=== PATIENT | female | born 1940 | race Caucasian/White ===

== ENCOUNTER → 2017-05-24 11:03 | Outpatient (POV) | payer MEDICARE, SELFPAY ==
[2017-05-24 11:37] VITALS: BP 177/96; PULSE 106; RESP 18; TEMP 36.3; O2SAT 95; BMI 87.9
--- NOTE | 2017-05-24 11:49 | HMH.PAINSOAP ---
[facility] Pain Management SOAP Note Subjective:: This patient is a pleasant 76-year-old white female who we are treating for low back pain with lumbar spondylosis and lumbar radiculopathy symptoms. She had bilateral facet joint injection/medial branch blocks which gave her some relief however not long lasting and not significant. We will seek approval and plan on a regular lumbar epidural steroid injection. She may get better relief from this injection. She had previous surgery by Dr. Rivers in 1989. Most of her pain is in the back radiating down both legs. Objective:: Alert and oriented ?3 in no acute distress. Patient has an antalgic gait. Motor strength of the lower extremities is 5/5. There is no gross sensory deficit. Assessment:: Degenerative disc disease of the lumbar spine with lumbar radiculopathy symptoms and postlaminectomy syndrome lumbar spine Plan:: We will seek approval for a lumbar epidural steroid injection at L4-L5. Hopefully this will give her better pain relief than previous lumbar medial branch blocks
== END ==
PROVIDERS: Family Provider Internal Medicine Adolescent Medicine; PCP Internal Medicine Adolescent Medicine; Visit Provider Anesthesiology
DX: M51.16 Intervertebral disc disorders with radiculopathy, lumbar region (principal)
CPT/HCPCS: 99212

== ENCOUNTER 2017-06-06 17:37 | Emergency (ER) | payer MEDICARE, SELFPAY ==
--- NOTE | 2017-06-06 | CT_ITS ---
CT head/brain wo con HISTORY: aphasia, speech difficulty ITS.REASON: STROKE PROTOCOL ORDERING PHYSICIAN: Urbano Steve MD PATIENT AGE: 77 years COMPARISON: 02/01/2017 TECHNIQUE: Axial images obtained without contrast. Brain and bone windows reviewed. FINDINGS: No midline shift, mass effect, intracranial hemorrhage, hydrocephalus, or extra-axial fluid collection is evident. There is atrophy with chronic periventricular ischemic gliotic change. The calvarium has an unremarkable appearance. No mastoid effusion. No sinus air-fluid levels.. IMPRESSION: 1. No acute intracranial findings. 2. Atrophy with chronic ischemic gliotic change. 3. There is no evidence of intracranial hemorrhage, focal mass, or acute territorial infarction. A negative CT does not exclude an acute CVA. A follow-up head CT or MRI is recommended if neurological symptoms persist .
[2017-06-06 17:37] VITALS: BP 198/128; PULSE 98; RESP 16; TEMP 36.9; O2SAT 98; BMI 40.2
--- NOTE | 2017-06-06 17:45 | PC.NURSE ---
Notified Rad of Stroke Protocol.
[2017-06-06 17:46] VITALS: BMI 40.2
--- NOTE | 2017-06-06 17:46 | XR_ITS ---
XR chest AP HISTORY: aphasia, confusion ITS.REASON: confusion ORDERING PHYSICIAN: Urbano Steve MD PATIENT AGE: 77 years COMPARISON: 03/29/2016 FINDINGS: Cardiomegaly without failure. There is mild blunting of the left CP angle.. The lungs are clear without infiltrates, suspicious nodules, or pleural effusions. No acute bony abnormalities. IMPRESSION: Cardiomegaly with blunting of left CP angle suggesting small effusion
--- NOTE | 2017-06-06 17:46 | CT_ITS ---
CT Request head Ordering Physician: Urbano Steve MD Patient Age: 77 years: Female HISTORY: ITS.REASON: period of expressive aphasia TECHNIQUE: Axial CT head without contrast with brain and bone windows performed and submitted to PACS. COMPARISON :Previous CT head with & without contrast January 2017 FINDINGS No acute intracranial findings. No hemorrhage. No mass effect or mass lesion evident.. No subdural no extra-axial collection. No territorial infarct Mild cerebral atrophy again noted. Stable. Chronic small vessel deep white matter ischemic chronic changes, as reflected by the diffuse subtle low-density areas throughout the white matter cerebral hemispheres bilateral.. atherosclerotic calcification seen at the carotid siphon Posterior fossa appears satisfactory . IACs appear symmetric. Unremarkable. Middle ear clear. Mastoid air cells are well-developed and clear. The visualized portions of the paranasal sinuses clear no significant findings. Orbits unremarkable IMPRESSION: 1. No acute intracranial findings. Stable CT the brain without contrast. No appreciable change since February 16 2. Mild chronic small vessel deep white matter ischemic changes at hemispheres again noted
--- NOTE | 2017-06-06 17:47 | PC.NURSE ---
Pt leaving for CT
--- NOTE | 2017-06-06 18:05 | PC.NURSE ---
Pt return from CT
[2017-06-06 18:07] VITALS: BP 195/128; PULSE 85; RESP 16; O2SAT 98
--- NOTE | 2017-06-06 18:09 | HMH.EDNEU ---
ED Disposition Clinical Impression: Hypertensive emergency Cerebrovascular accident Qualifiers: CVA mechanism: unspecified Qualified Code(s): I63.9 - Cerebral infarction, unspecified A-fib Qualifiers: Atrial fibrillation type: chronic Qualified Code(s): I48.2 - Chronic atrial fibrillation Disposition: Xfer Short-Term Hosp Condition on Discharge: Serious Referrals: Adriano Aguilar MD [Primary Care Provider] - - Critical Care Critical Care Time: Yes Attestation: On 06/06/17, the high probability of a clinically significant, sudden or life threatening deterioration of the following system(s) required my full and direct attention, intervention and personal management. The time I documented below is in addition to time spent performing reported procedures but includes the following listed in this critical care notation. Total Critical Care Time: 60 Vital system(s) involved:: Central Nervous System My critical care processes included: Assessment & monitoring of V/S, Initial and Re-exams, Medication Orders and management, Documentation Medical Decision Making - Medical Records Medical records reviewed: Yes: I reviewed the patient's medical records. Vital Signs: 06/06/17 17:37 06/06/17 18:07 06/06/17 19:00 Temperature 98.5 F Temperature Source Oral Pulse Rate [Right Brachial] 98 H 85 87 Respiratory Rate 16 16 16 Blood Pressure [Left Arm] 198/128 195/128 185/115 Blood Pressure Mean [Left Arm] 151 150 138 Blood Pressure Source [Left Arm] Manual Cuff/ Auscultation Manual Cuff/ Palpation Manual Cuff/ Palpation Blood Pressure Position [Left Arm] Sitting Sitting Sitting 02 Sat by Pulse Oximetry 98 98 98 Oxygen Delivery Method Room Air Room Air Room Air - Lab Data Lab results reviewed: Yes: I reviewed the patient's lab results. Lab Results 06/06/17 18:27: WBC 6.3, RBC 4.66, Hgb 14.0, Hct 43.2, MCV 92.6, MCH 30.0, MCHC 32.4, RDW 12.8, Plt Count 190, MPV 9.4, Neut % (Auto) 64.2, Lymph % (Auto) 24.0, [place] % (Auto) 9.3, Eos % (Auto) 1.9, Baso % (Auto) 0.5, Neut # (Auto) 4.0, Lymph # (Auto) 1.5, [place] # (Auto) 0.6, Eos # (Auto) 0.1, Baso # (Auto) 0.0 06/06/17 18:27: Total Creatine Kinase 55, CK-MB (CK-2) 1.1, CK-MB (CK-2) Rel Index 2.0, Troponin I < 0.02 06/06/17 18:27: PT 10.7, INR 0.99, APTT 25.1 06/06/17 18:27: Sodium 139, Potassium 4.2, Chloride 103, Carbon Dioxide 27, Anion Gap 13.2, BUN 17, Creatinine 1.06 H, Estimated Creat Clear 68, Estimated GFR 50 L, Est GFR ( Amer) 61, Glucose 138 H Result diagrams: 06/06/17 18:27 06/06/17 18:27 Orders (Tests/Meds): ED MEDICATIONS Discontinued Medications Generic Name Dose Route Start Last Admin Trade Name Freq PRN Reason Stop Dose Admin Labetalol HCl 10 mg 06/06/17 19:26 Labetalol Hcl 20mg/4ml Syringe IV 06/06/17 19:27 ONCE ONE ORDERS Category Date Time Status CT head/brain wo con Routine Cat Scan 06/06/17 Taken Chest XR AP view [XR chest AP] Stat Exams 06/06/17 17:46 Taken - Radiology Data #1 Image(s): Chest Image Reviewed: Yes I reviewed the patient's radiology image Preliminary Findings: Abnormal (cm) - CT Data CT Scan: Head Time Received: 18:[address] Reviewed: Yes: I have viewed the radiologist's interpretation Preliminary Findings: Abnormal (no acute bleed) - ECG Data Tracing #1 I reviewed this ECG and interpreted as documented below: Arrhythmias present: afib Ischemic changes: non-specific ST-T wave changes - Physician Consults Physician Consulted: sarah Reason -: Transfer to another facilty - [facility] Inquiry Pt receiving controlled substance: No Neuro HPI - General Chief Complaint: Neuro Symptoms/Deficit Stated Complaint: Difficulty Speaking Time Seen by Provider: 06/06/17 18:00 Mode of Arrival: Wheelchair Source of Information: Patient, Relative, Medical Record Limitations: No Limitations Description of Symptoms (Recalled from ER Triage Doc. by RN): Pt family advises she had a
--- NOTE | 2017-06-06 18:12 | ED_ITS ---
ED Disposition Clinical Impression: Hypertensive emergency Cerebrovascular accident Qualifiers: CVA mechanism: unspecified Qualified Code(s): I63.9 - Cerebral infarction, unspecified A-fib Qualifiers: Atrial fibrillation type: chronic Qualified Code(s): I48.2 - Chronic atrial fibrillation Disposition: Xfer Short-Term Hosp Condition on Discharge: Serious Referrals: Adriano Aguilar MD [Primary Care Provider] - - Critical Care Critical Care Time: Yes Attestation: On 06/06/17, the high probability of a clinically significant, sudden or life threatening deterioration of the following system(s) required my full and direct attention, intervention and personal management. The time I documented below is in addition to time spent performing reported procedures but includes the following listed in this critical care notation. Total Critical Care Time: 60 Vital system(s) involved:: Central Nervous System My critical care processes included: Assessment & monitoring of V/S, Initial and Re-exams, Medication Orders and management, Documentation Medical Decision Making - Medical Records Medical records reviewed: Yes: I reviewed the patient's medical records. Vital Signs: 06/06/17 17:37 06/06/17 18:07 06/06/17 19:00 Temperature 98.5 F Temperature Source Oral Pulse Rate [Right Brachial] 98 H 85 87 Respiratory Rate 16 16 16 Blood Pressure [Left Arm] 198/128 195/128 185/115 Blood Pressure Mean [Left Arm] 151 150 138 Blood Pressure Source [Left Arm] Manual Cuff/ Auscultation Manual Cuff/ Palpation Manual Cuff/ Palpation Blood Pressure Position [Left Arm] Sitting Sitting Sitting 02 Sat by Pulse Oximetry 98 98 98 Oxygen Delivery Method Room Air Room Air Room Air - Lab Data Lab results reviewed: Yes: I reviewed the patient's lab results. Lab Results 06/06/17 18:27: WBC 6.3, RBC 4.66, Hgb 14.0, Hct 43.2, MCV 92.6, MCH 30.0, MCHC 32.4, RDW 12.8, Plt Count 190, MPV 9.4, Neut % (Auto) 64.2, Lymph % (Auto) 24.0 , [place] % (Auto) 9.3, Eos % (Auto) 1.9, Baso % (Auto) 0.5, Neut # (Auto) 4.0, Lymph # (Auto) 1.5, [place] # (Auto) 0.6, Eos # (Auto) 0.1, Baso # (Auto) 0.0 06/06/17 18:27: Total Creatine Kinase 55, CK-MB (CK-2) 1.1, CK-MB (CK-2) Rel Index 2.0, Troponin I < 0.02 06/06/17 18:27: PT 10.7, INR 0.99, APTT 25.1 06/06/17 18:27: Sodium 139, Potassium 4.2, Chloride 103, Carbon Dioxide 27, Anion Gap 13.2, BUN 17, Creatinine 1.06 H, Estimated Creat Clear 68, Estimated GFR 50 L, Est GFR ( Amer) 61, Glucose 138 H Result diagrams: 06/06/17 18:27 06/06/17 18:27 Orders (Tests/Meds): ED MEDICATIONS Discontinued Medications Generic Name Dose Route Start Last Admin Trade Name Freq PRN Reason Stop Dose Admin Labetalol HCl 10 mg 06/06/17 19:26 Labetalol Hcl 20mg/4ml Syringe IV 06/06/17 19:27 ONCE ONE ORDERS Category Date Time Status CT head/brain wo con Routine Cat Scan 06/06/17 Taken Chest XR AP view [XR chest AP] Stat Exams 06/06/17 17:46 Taken - Radiology Data #1 Image(s): Chest Image Reviewed: Yes I reviewed the patient's radiology image Preliminary Findings: Abnormal (cm) - CT Data CT Scan: Head Time Received: 18:[address] Reviewed: Yes: I have viewed the radiologist's interpretation Preliminary Findings: Abnormal (no acute bleed) - ECG Data
--- NOTE | 2017-06-06 18:16 | INFXCTL.NOTE ---
speaking manju MARINO
--- NOTE | 2017-06-06 18:18 | PC.NURSE ---
[facility] reports to CT negative
[2017-06-06 18:40] LABS: Basophils % 0.5 % (0.1-2.0); Eosinophils # 0.1 K/mm3 (0.0-0.4); Eosinophils % 1.9 % (0.1-12.0); Hematocrit 43.2 % (37.0-47.0); Lymphocytes # 1.5 K/mm3 (0.7-4.5); Mean Corpuscular HGB Conc 32.4 g/dL (31.8-35.4); Mean Corpuscular Volume 92.6 fl (81-99); Mean Platelet Volume 9.4 fl (7.4-10.4); Monocytes # 0.6 K/mm3 (0.1-1.0); Monocytes % 9.3 % (1.7-9.3); Neutrophils % 64.2 % (37.0-80.0); Platelet Count 190 K/mm3 (142-424); Red Blood Count 4.66 M/mm3 (4.20-5.40); Red Cell Distribution Width 12.8 % (11.5-17.5); White Blood Count 6.3 K/mm3 (4.8-10.8)
[2017-06-06 18:43] LABS: Anion Gap 13.2 mEq/L (5-15); Blood Urea Nitrogen 17 mg/dL (7-18); Carbon Dioxide 27 mmol/L (21.0-32.0); Chloride 103 mmol/L (98-107); Creatinine Clearance Estimated 68 mL/min (0-300); Creatinine,Serum 1.06 mg/dL (0.55-1.02); Estimated Glomerular Filt Rate 50 ml/min (>60); GFR (African American) 61 ML/MIN (>60); Glucose 138 mg/dL (74-106); Potassium 4.2 mmoL/L (3.5-5.1); Sodium 139 mmol/L (136-145)
[2017-06-06 18:44] LABS: Activated Partial Thrombo Time 25.1 seconds (23.6-34.0); INR 0.99 (0.9-1.1); Prothrombin Time 10.7 seconds (9.4-11.8)
[2017-06-06 19:00] VITALS: BP 185/115; PULSE 87; RESP 16; O2SAT 98
[2017-06-06 19:00] LABS: Creatine Kinase 55 U/L (26-192); Creatine Kinase MB 1.1 mg/ml (0.0-3.6); Troponin I < 0.02 ng/ml (0.00-0.06)
--- NOTE | 2017-06-06 19:21 | PC.NURSE ---
[facility]OKE TEAM CALLED
[2017-06-06 19:53] VITALS: BP 166/111; PULSE 116; RESP 20; O2SAT 96
[2017-06-06 20:35] VITALS: BP 166/111; PULSE 116; RESP 20; TEMP 36.4
== END 2017-06-06 20:05 | disposition short-term general hospital (02) ==
PROVIDERS: Emergency Provider Emergency Medicine; Family Provider Internal Medicine Adolescent Medicine; PCP Internal Medicine Adolescent Medicine
DX: I16.1 Hypertensive emergency (principal); I63.9 Cerebral infarction, unspecified; I48.2 Chronic atrial fibrillation; R29.700 NIHSS score 0; Z88.6 Allergy status to analgesic agent; E11.9 Type 2 diabetes mellitus without complications; Z79.84 Long term (current) use of oral hypoglycemic drugs; Z79.82 Long term (current) use of aspirin
CPT/HCPCS: 36415; 70450; 71045; 80048; 82550; 82553; 84484; 85025; 85610; 85730; 93005; 93041; 99283

== ENCOUNTER 2017-07-23 15:29 | Day surgery (SDC) | payer MEDICARE, SELFPAY ==
[2017-07-23 15:47] VITALS: BP 193/82; PULSE 87; RESP 16; TEMP 36.5; O2SAT 97; BMI 39.9
--- NOTE | 2017-07-23 16:20 | HMH.PMPROC ---
- Procedure Date: 07/23/17 Time: 16:20 Anesthesiologist:: Jewel Galvin MD Complications:: None Pre-procedure Diagnosis:: Degenerative disc disease of lumbar spine with lumbar radiculopathy symptoms and postlaminectomy syndrome with lumbar spine. Post-procedure Diagnosis:: Same Indications for Procedure:: Patient is a pleasant 76-year-old white female who we are treating for low back pain with lumbar radiculopathy symptoms. She is also had previous back surgery. We do a lumbar epidural steroid injection under fluoroscopy today to see if this gives her some relief. Procedure Details:: Lumbar epidural steroid injection under fluoroscopy informed consent was obtained and the risk and benefits of the procedure was explained to the patient. The patient was taken to the procedure room. The patient was placed prone on the procedure table. The patient was prepped and draped in sterile fashion. C-arm fluoroscopy was used to view the lumbar spine. Skin and subcutaneous tissues were anesthetized using lidocaine. I placed an 18-gauge epidural needle and advanced into the L4-L5 interspace using fluoroscopic guidance and [id number] to air. After confirmation of needle placement in the epidural space with dye I injected 2 mL of lidocaine 1.5% with Depo-Medrol 80 mg. Patient tolerated the procedure well with no complications. Plan and Disposition:: We will follow-up with this patient in 2 weeks. Will reevaluate symptoms at that time.
[2017-07-23 16:23] VITALS: BP 185/103; PULSE 85; RESP 20
[2017-07-23 16:25] VITALS: BP 188/99; PULSE 86; RESP 20
--- NOTE | 2017-07-23 16:29 | P.PCN_ITS ---
- Procedure Date: 07/23/17 Time: 16:20 Anesthesiologist:: Jewel Galvin MD Complications:: None Pre-procedure Diagnosis:: Degenerative disc disease of lumbar spine with lumbar radiculopathy symptoms and postlaminectomy syndrome with lumbar spine. Post-procedure Diagnosis:: Same Indications for Procedure:: Patient is a pleasant 76-year-old white female who we are treating for low back pain with lumbar radiculopathy symptoms. She is also had previous back surgery. We do a lumbar epidural steroid injection under fluoroscopy today to see if this gives her some relief. Procedure Details:: Lumbar epidural steroid injection under fluoroscopy informed consent was obtained and the risk and benefits of the procedure was explained to the patient. The patient was taken to the procedure room. The patient was placed prone on the procedure table. The patient was prepped and draped in sterile fashion. C-arm fluoroscopy was used to view the lumbar spine. Skin and subcutaneous tissues were anesthetized using lidocaine. I placed an 18-gauge epidural needle and advanced into the L4-L5 interspace using fluoroscopic guidance and [id number] to air. After confirmation of needle placement in the epidural space with dye I injected 2 mL of lidocaine 1.5 % with Depo-Medrol 80 mg. Patient tolerated the procedure well with no complications. Plan and Disposition:: We will follow-up with this patient in 2 weeks. Will reevaluate symptoms at that time.
[2017-07-23 16:40] VITALS: BP 175/83; PULSE 88; RESP 18; O2SAT 97
[2017-07-27 10:03] LABS: POC Glucose,Bedside 102 mg/dL (70-110)
== END 2017-07-23 16:30 | disposition home or self-care (01) ==
LOC: SC.PAINP 15:31
PROVIDERS: Family Provider Internal Medicine Adolescent Medicine; PCP Internal Medicine Adolescent Medicine; Visit Provider Anesthesiology
DX: M51.16 Intervertebral disc disorders with radiculopathy, lumbar region (principal); M96.1 Postlaminectomy syndrome, not elsewhere classified
CPT/HCPCS: 62323; 82962; J1040; Q9966

== ENCOUNTER 2018-07-26 12:50 | Observation (INO) ==
--- NOTE | 2018-07-26 14:23 | Pharmacy Consult Notes ---
[facility] Pharmacy VTE Monitoring - Patient Demographics Admission date: 07/26/18 Report Date: 07/26/18 Time: 14:23 Allergies/Adverse Reactions: Patient Allergies codeine [CODEINE] Allergy (Unknown, Verified 06/06/17 18:01) Height: 1.63 m Weight: 91.314 kg - Prophylaxis VTE Prophylaxis Ordered?: Yes Types of VTE Prophylaxis: TEDS Knee High, Pharmacological Location of Applied Device: Bilateral Lower Extremeties Pharmacologic Type: Other (XARELTO) - VTE Diagnosis Confirmed Treatment or plan recommended: Continue Current Treatment
[2018-07-26 15:04] LABS: Basophils % 0.3 % (0.1-2.0); Eosinophils # 0.1 K/mm3 (0.0-0.4); Eosinophils % 0.6 % (0.1-12.0); Hematocrit 41.1 % (37.0-47.0); Hemoglobin 13.7 g/dL (12.2-16.2); Lymphocytes % 10.3 % (10-50); Mean Corpuscular HGB Conc 33.4 g/dL (31.8-35.4); Mean Corpuscular Hemoglobin 31.1 pg (27.0-31.2); Mean Platelet Volume 10.3 fl (7.4-10.4); Monocytes # 0.7 K/mm3 (0.1-1.0); Monocytes % 7.3 % (1.7-9.3); Neutrophils # 7.7 K/mm3 (1.8-7.8); Neutrophils % 81.5 % (37.0-80.0); Platelet Count 222 K/mm3 (142-424); Red Blood Count 4.41 M/mm3 (4.20-5.40); Red Cell Distribution Width 13.6 % (11.5-17.5); White Blood Count 9.4 K/mm3 (4.8-10.8)
[2018-07-26 15:48] LABS: Albumin Level 3.1 gm/dL (3.4-5.0); Anion Gap 15.7 mEq/L (5-15); Bilirubin,Total 0.5 mg/dL (0.2-1.0); Globulin 3.2 gm/dl (1.3-3.2); Potassium 4.7 mmoL/L (3.5-5.1); Total Protein,Serum 6.3 gm/dL (6.4-8.2)
[2018-07-26 16:23] LABS: Microscopic, Urine URINE MICROSCOPIC (MICROSCOPIC)
[2018-07-26 16:26] LABS: Appearance,Urine CLEAR (Clear); Blood, Urine TRACE-I (Negative); Color,Urine YELLOW (Yellow); Glucose,Urine (UA) Negative (Negative); Ketones,Urine 1+ (Negative); Leukocyte Esterase,Urine 2+ (Negative); PH,Urine 5.5 (5.0-8.5); Protein,Urine 1+ (Negative); Urobilinogen,Urine 0.2 EU/dl (0.2)
[2018-07-26 16:31] LABS: Bilirubin,Urine Negative (Negative)
[2018-07-26 16:50] LABS: Bacteria,Urine Trace /lpf; RBC,Urine Occasional #/hpf (0-3)
--- NOTE | 2018-07-26 18:43 | History & Physical Report ---
*Admission Date: 07/26/18 *Chief complaint: Severe nausea/weight loss *History of present illness: 78-year-old white female with multiple medical problems including hypertension, type 2 diabetes and diastolic CHF who presented to my office today with continuing problems with nausea and weight loss. She had been diagnosed with urinary tract infection, treated as an outpatient last weekend, but had failed to improve and apparently has not been taking her oral medications for urinary tract infection because of nausea and severe vomiting. In the office she was found to be dehydrated, have a 10 pound weight loss over the past week and was admitted to hospital for further evaluation and further diagnostic testing. [facility] History I have reviewed the patient's past medical history: Yes Medical History: Reports:: Atrial Fibrillation, Diabetes Mellitus Type 2, Hyperlipidemia, Hypertension Denies:: Diabetes Mellitus Type 1 *Have you ever received a pneumonia vaccine?: No *Have you received a flu vaccine this season?: No Other Medical History: Reports: Cataracts, Hypothyroidism, Thyroid Disease Other Surgeries: Yes: Cardiac Catheterization (stents) - *Social History Smoking Status: Former smoker Alcohol Intake: never *Occupational Status:: unemployed, retired Housing: house *Travel in the last 8 weeks: None - Psychiatric History Expresses thoughts of harming self/others: None Suicide Plan Description: No Plan Family Hx:: No significant family history, Non-contributory Review of Systems - Review of Systems Review of systems:: pertinent systems reviewed and negative unless documented below - Constitutional Reports anorexia, Reports body ache(s), Reports fatigue, Reports malaise, Denies headache(s) - Eyes Denies blind spots, Denies blurry vision, Denies change in vision - ENT Denies abnormal hearing, Denies bleeding gums - *Cardiovascular Reports irregular heart rhythm, Denies chest pain, Denies excessive sweating, Denies shortness of breath, Denies leg swelling, Denies leg sores - *Respiratory Denies change in phlegm color, Denies chest congestion, Denies cough, Denies shortness of breath - *Gastrointestinal Reports abdominal pain, Reports belching, Reports bloating, Reports difficulty swallowing, Reports feeling full early, Reports heartburn, Reports nausea, Denies vomiting blood, Denies bright, red blood in stools - *Genitourinary Denies abnormal vaginal bleeding - *Musculoskeletal Reports abnormal walking - Integumentary/Breasts Denies acne, Denies hair loss - *Neurologic Denies abnormal walking, Denies abnormal hearing, Denies abnormal movements, Denies burning sensations Meds Home Medications Medication Instructions Recorded Confirmed Type Aspirin [Aspirin 81mg chewable 81 mg PO DAILY 05/24/17 07/26/18 History tab] Levothyroxine Sodium 50 mcg PO DAILY 05/24/17 07/26/18 History [Levothyroxine 50mcg (0.05mg) Tab] Metformin HCl [Glucophage 500mg 1,000 mg PO BID 05/24/17 07/26/18 History Tablet] Omeprazole Magnesium [Prilosec Otc 20 mg PO BID 05/24/17 07/26/18 History 20mg Tab] Rivaroxaban [Xarelto] 20 mg PO DAILY 07/23/17 07/26/18 History Nitrofurantoin Monohyd/M-Cryst 100 mg PO BID #14 capsule 07/19/18 07/26/18 Rx [Macrobid 100 mg Capsule] Ondansetron [Zofran 4mg ODT] 4 mg PO TIDP PRN #10 tab.rapdis 07/19/18 07/26/18 Rx Atorvastatin Calcium [Atorvastatin 40 mg PO HS 07/26/18 07/26/18 History 40mg Tab] Carvedilol [Carvedilol 25mg Tab] 25 mg PO BID 07/26/18 07/26/18 History Lisinopril [Lisinopril 40mg Tablet] 40 mg PO DAILY 07/26/18 07/26/18 History hydroCHLOROthiazide [HCTZ 25mg 25 mg PO DAILY 07/26/18 07/26/18 History tab] Allergies Allergy/AdvReac Type Severity Reaction Status Date / Time codeine [CODEINE] Allergy Unknown Verified 06/06/17 18:01 Exam Vital signs and Labs for Last 24 Hours: Temp Pulse Resp BP Pulse Ox 97.8 F 74 18 145/85 H 98 07/26/18 13:56 07/26/18 13:56 07/26/18 13:56 07/26/18 13:56 07/26/18 13:56 Laboratory Results - last 24 hr 07/26/18 14:15: WBC 9.4, RBC 4.41, Hgb 13.7, Hct 41.1, MCV 93.0, MCH 31.1, MCHC 33.4, RDW 13.6, Plt Count 222, MPV 10.3, Neut % (Auto) 81.5 H, Lymph % (Auto) 10.3, [place] % (Auto) 7.3, Eos % (Auto) 0.6, Baso % (Auto) 0.3, Neut # (Auto) 7.7, Lymph # (Auto) 1.0, [place] # (Auto) 0.7, Eos # (Auto) 0.1, Baso # (Auto) 0.0 07/26/18 14:15: Sodium 137, Potassium 4.7, Chloride 102, Carbon Dioxide 24, Anion Gap 15.7 H, BUN 36 H, Creatinine 1.34 H, Estimated Creat Clear 48, Estimated GFR 38 L, Est GFR ( Amer) 46 L, Glucose 128 H, Calcium 8.0 L, Magnesium 1.2 L, Total Bilirubin 0.5, AST 19, ALT 24, Alkaline Phosphatase 49, Total Protein 6.3 L, Albumin 3.1 L, Globulin 3.2, Albumin/Globulin Ratio 1.0 L 07/26/18 16:15: Urine Color Yellow, Urine Appearance Clear, Urine pH 5.5, Ur Specific [place] 1.020, Urine Protein 1+, Urine Glucose (UA) Negative, Urine Ketones 1+, Urine Blood Trace-i, Urine Nitrate Negative, Urine Bilirubin Negative, Urine Urobilinogen 0.2, Ur Leukocyte Esterase 2+ A, Urine RBC Occasional, Urine WBC 5-10, Ur Squamous Epith Cells 3-5, Urine Bacteria Trace 07/26/18 17:06: POC Glucose 112 H I & O for Last 24 hours: Intake & Output 07/24/18 07/25/18 07/26/18 07/27/18 11:59 11:59 11:59 11:59 Intake Total 0 / 0 Output Total 250 / 250 Balance -250 / -250 Weight 201 lb 5 oz Narrative: Patient appears ill, weight loss obvious over the past week. Oropharynx dry but clear. Flat neck veins. Otherwise ENT exam clear. Lungs have good air movement. Abdomen is soft, recent weight loss noted but patient remains obese. Present but diminished bowel sounds. No masses or tenderness with rebound. Heart rate irregular. Previously noted holosystolic murmur. No edema or clubbing. Patient is unsteady and weak when walking. Is able to move arms and legs symmetrically. Assessment and Plan (1) Weight loss Current visit: Yes Status: Acute Category: Medical Code(s): R63.4 - Abnormal weight loss Possibly from metabolic illness but more ominous signs possible. Admit to hospital. CT scan of abdomen, labs, check cultures. (2) Abdominal pain Current visit: Yes Status: Acute Category: Medical Code(s): R10.9 - Unspecified abdominal pain (3) UTI (urinary tract infection) Current visit: No Status: Acute Category: Medical Code(s): N39.0 - Urinary tract infection, site not specified Partially treated given poor compliance with p.o. medication. Start IV ceftriaxone. Check cultures (4) Vomiting Current visit: No Status: Acute Category: Medical Code(s): R11.10 - Vomiting, unspecified
[2018-07-27 06:58] LABS: Platelet Count 174 K/mm3 (142-424)
[2018-07-27 07:03] LABS: Anion Gap 11.4 mEq/L (5-15); Calcium 8.3 mg/dL (8.5-10.1); Potassium 5.4 mmoL/L (3.5-5.1)
[2018-07-27 07:13] LABS: Basophils % 0.4 % (0.1-2.0); Eosinophils % 0.4 % (0.1-12.0); Hematocrit 35.7 % (37.0-47.0); Lymphocytes % 11.9 % (10-50); Mean Corpuscular Hemoglobin 30.9 pg (27.0-31.2); Mean Corpuscular Volume 93.7 fl (81-99); Mean Platelet Volume 9.7 fl (7.4-10.4); Monocytes # 0.8 K/mm3 (0.1-1.0); Monocytes % 9.7 % (1.7-9.3); Neutrophils # 6.1 K/mm3 (1.8-7.8); Neutrophils % 77.5 % (37.0-80.0); Red Blood Count 3.81 M/mm3 (4.20-5.40); Red Cell Distribution Width 13.9 % (11.5-17.5); White Blood Count 7.9 K/mm3 (4.8-10.8)
[2018-07-27 07:19] LABS: Hemoglobin 11.8 g/dL (12.2-16.2)
--- NOTE | 2018-07-27 08:17 | Progress Note ---
Internal Medicine - PN: Subj *Date: 07/27/18 *Time: 08:15 Interval history: Patient feels somewhat better after a night of IV fluids. Has been able to keep down some sips of water and is hungry today. Exam Vital signs and Labs for Last 24 Hours: Temp Pulse Resp BP Pulse Ox 98.7 F 81 16 120/54 L 96 07/27/18 04:00 07/27/18 04:00 07/27/18 04:00 07/27/18 04:00 07/27/18 04:00 Laboratory Results - last 24 hr 07/26/18 14:15: WBC 9.4, RBC 4.41, Hgb 13.7, Hct 41.1, MCV 93.0, MCH 31.1, MCHC 33.4, RDW 13.6, Plt Count 222, MPV 10.3, Neut % (Auto) 81.5 H, Lymph % (Auto) 10.3, [place] % (Auto) 7.3, Eos % (Auto) 0.6, Baso % (Auto) 0.3, Neut # (Auto) 7.7, Lymph # (Auto) 1.0, [place] # (Auto) 0.7, Eos # (Auto) 0.1, Baso # (Auto) 0.0 07/26/18 14:15: Sodium 137, Potassium 4.7, Chloride 102, Carbon Dioxide 24, Anion Gap 15.7 H, BUN 36 H, Creatinine 1.34 H, Estimated Creat Clear 48, Estimated GFR 38 L, Est GFR ( Amer) 46 L, Glucose 128 H, Calcium 8.0 L, Magnesium 1.2 L, Total Bilirubin 0.5, AST 19, ALT 24, Alkaline Phosphatase 49, Total Protein 6.3 L, Albumin 3.1 L, Globulin 3.2, Albumin/Globulin Ratio 1.0 L 07/26/18 16:15: Urine Color Yellow, Urine Appearance Clear, Urine pH 5.5, Ur Specific Energy 1.020, Urine Protein 1+, Urine Glucose (UA) Negative, Urine Ketones 1+, Urine Blood Trace-i, Urine Nitrate Negative, Urine Bilirubin Negative, Urine Urobilinogen 0.2, Ur Leukocyte Esterase 2+ A, Urine RBC Occasional, Urine WBC 5-10, Ur Squamous Epith Cells 3-5, Urine Bacteria Trace 07/26/18 17:06: POC Glucose 112 H 07/26/18 20:27: POC Glucose 108 07/27/18 05:58: WBC 7.9, RBC 3.81 L, Hgb 11.8 L D, Hct 35.7 L, MCV 93.7, MCH 30.9, MCHC 33.0, RDW 13.9, Plt Count 174, MPV 9.7, Neut % (Auto) 77.5, Lymph % (Auto) 11.9, [place] % (Auto) 9.7 H, Eos % (Auto) 0.4, Baso % (Auto) 0.4, Neut # (Auto) 6.1, Lymph # (Auto) 1.0, [place] # (Auto) 0.8, Eos # (Auto) 0.0, Baso # (Auto) 0.0 07/27/18 05:58: Sodium 137, Potassium 5.4 H, Chloride 105, Carbon Dioxide 26, Anion Gap 11.4, BUN 26 H D, Creatinine 1.15 H, Estimated Creat Clear 57, Estimated GFR 45 L, Est GFR ( Amer) 55 L, Glucose 121 H, Calcium 8.3 L 07/27/18 06:02: POC Glucose 117 H I & O for Last 24 hours: Intake & Output 07/24/18 07/25/18 07/26/18 07/27/18 11:59 11:59 11:59 11:59 Intake Total 2076 / 2076 Output Total 250 / 250 Balance 1827 / 1827 Weight 203 lb 9 oz Narrative: Patient looks brighter. No jaundice or scleral icterus. Lungs have good air movement, heart rate regular with previously noted murmur. Abdomen soft, no tenderness. Patient appears better hydrated. Able to move arms and legs well. Assessment and Plan (1) Weight loss Current visit: Yes Status: Acute Category: Medical Code(s): R63.4 - Abnormal weight loss (2) Abdominal pain Current visit: Yes Status: Acute Category: Medical Code(s): R10.9 - Unspecified abdominal pain (3) UTI (urinary tract infection) Current visit: No Status: Acute Category: Medical Code(s): N39.0 - Urinary tract infection, site not specified Possibly partially treated/inadequately treated by p.o. antibiotics last week because of nausea and poor p.o. intake. IV ceftriaxone currently. (4) Vomiting Current visit: No Status: Acute Category: Medical Code(s): R11.10 - Vomiting, unspecified (5) Cholelithiasis Current visit: Yes Status: Acute Category: Medical Code(s): K80.20 - Calculus of gallbladder without cholecystitis without obstruction Possible cause of nausea, noted on CT scan. Check ultrasound today (6) Pericardial effusion Current visit: Yes Status: Acute Category: Medical Code(s): I31.3 - Pericardial effusion (noninflammatory) Patient has a cardiac history. Will get echocardiogram to evaluate significance of pericardial effusion visualized on CT scan and have her cardiology team follow her up while in hospital (7) Acute kidney injury Current visit: Yes Status: Acute Category: Medical Code(s): N17.9 - Acute kidney failure, unspecified Improving overnight after IV fluids, will watch tomorrow. (8) Hyperkalemia Current visit: Yes Status: Acute Category: Medical Code(s): E87.5 - Hyperkalemia Has a history of hyperkalemia. We will watch this tomorrow. Continue IV fluids
--- NOTE | 2018-07-27 11:46 | Consult Report ---
History of Present Illness Consult date: 07/27/18 Requesting physician: Adriano Aguilar Consult reason: shortness of breath Chief complaint: Vomiting, shortness of breath, pericardial effusion History of present illness: This is an 78-year-old white female who was admitted to the hospital from her primary care provider's office after a 10 pound weight loss in 1 week and dehydration. The patient was being treated outpatient for a UTI, but there was some noncompliance with her treatment and the patient failed to get better with her UTI. The patient was having abdominal pain nausea vomiting and weight loss. As mentioned before she did lose 10 pounds in around about a week. The patient states that she just did not feel well. She does have some shortness of breath at times with exertion. She states that this is only minimal. She states that her nausea and vomiting are more of a bother to her than her shortness of breath. She denies any chest pain or pressure. She denies any palpitations or racing of the heart. She does report that she does have a history of coronary artery disease with stenting several years ago. She states that she does not regularly follow with a shallot cleaner and she does have atrial fibrillation. While in the hospital she did have a CAT scan of her abdomen which showed a pericardial thickness concerning for a pericardial effusion. She denies any fevers, chills, diarrhea, PND orthopnea. [facility] History I have reviewed the patient's past medical history: Yes Medical History: Reports:: Atrial Fibrillation, Coronary Artery Disease, Ramila betes Mellitus Type 2, Hyperlipidemia, Hypertension Denies:: Diabetes Mellitus Type 1 *Have you ever received a pneumonia vaccine?: No *Have you received a flu vaccine this season?: No Other Medical History: Reports: Cataracts, Hypothyroidism, Thyroid Disease Other Surgeries: Yes: Cardiac Catheterization (stents), Coronary Stent - *Social History Smoking Status: Former smoker Alcohol Intake: never *Occupational Status:: unemployed, retired Housing: house *Travel in the last 8 weeks: None - Psychiatric History Expresses thoughts of harming self/others: None Suicide Plan Description: No Plan Family Hx:: No significant family history, Non-contributory Meds Home Medications Medication Instructions Recorded Confirmed Type Aspirin [Aspirin 81mg chewable 81 mg PO DAILY 05/24/17 07/26/18 History tab] Levothyroxine Sodium 50 mcg PO DAILY 05/24/17 07/26/18 History [Levothyroxine 50mcg (0.05mg) Tab] Metformin HCl [Glucophage 500mg 1,000 mg PO BID 05/24/17 07/26/18 History Tablet] Omeprazole Magnesium [Prilosec Otc 20 mg PO BID 05/24/17 07/26/18 History 20mg Tab] Rivaroxaban [Xarelto] 20 mg PO DAILY 07/23/17 07/26/18 History Nitrofurantoin Monohyd/M-Cryst 100 mg PO BID #14 capsule 07/19/18 07/26/18 Rx [Macrobid 100 mg Capsule] Ondansetron [Zofran 4mg ODT] 4 mg PO TIDP PRN #10 tab.rapdis 07/19/18 07/26/18 Rx Atorvastatin Calcium [Atorvastatin 40 mg PO HS 07/26/18 07/26/18 History 40mg Tab] Carvedilol [Carvedilol 25mg Tab] 25 mg PO BID 07/26/18 07/26/18 History Lisinopril [Lisinopril 40mg Tablet] 40 mg PO DAILY 07/26/18 07/26/18 History hydroCHLOROthiazide [HCTZ 25mg 25 mg PO DAILY 07/26/18 07/26/18 History tab] Allergies Allergy/AdvReac Type Severity Reaction Status Date / Time codeine [CODEINE] Allergy Unknown Verified 06/06/17 18:01 Review of Systems - Review of Systems Review of systems:: pertinent systems reviewed and negative unless documented below - Constitutional Reports fatigue, Reports lack of energy - *Respiratory Reports shortness of breath with activity - *Gastrointestinal Reports abdominal pain, Reports nausea, Reports vomiting - *Neurologic Denies abnormal walking, Denies abnormal hearing, Denies abnormal movements, Denies burning sensations, Denies headache(s) Exam Vital signs and Labs for Last 24 Hours: Temp Pulse Resp BP Pulse Ox 98.6 F 83 20 112/52 L 97 07/27/18 08:00 07/27/18 08:00 07/27/18 08:00 07/27/18 08:00 07/27/18 08:00 Laboratory Results - last 24 hr 07/26/18 14:15: WBC 9.4, RBC 4.41, Hgb 13.7, Hct 41.1, MCV 93.0, MCH 31.1, MCHC 33.4, RDW 13.6, Plt Count 222, MPV 10.3, Neut % (Auto) 81.5 H, Lymph % (Auto) 10.3, [place] % (Auto) 7.3, Eos % (Auto) 0.6, Baso % (Auto) 0.3, Neut # (Auto) 7.7, Lymph # (Auto) 1.0, [place] # (Auto) 0.7, Eos # (Auto) 0.1, Baso # (Auto) 0.0 07/26/18 14:15: Sodium 137, Potassium 4.7, Chloride 102, Carbon Dioxide 24, Anion Gap 15.7 H, BUN 36 H, Creatinine 1.34 H, Estimated Creat Clear 48, Estimated GFR 38 L, Est GFR ( Amer) 46 L, Glucose 128 H, Calcium 8.0 L, Magnesium 1.2 L, Total Bilirubin 0.5, AST 19, ALT 24, Alkaline Phosphatase 49, Total Protein 6.3 L, Albumin 3.1 L, Globulin 3.2, Albumin/Globulin Ratio 1.0 L 07/26/18 16:15: Urine Color Yellow, Urine Appearance Clear, Urine pH 5.5, Ur Specific [place] 1.020, Urine Protein 1+, Urine Glucose (UA) Negative, Urine Ketones 1+, Urine Blood Trace-i, Urine Nitrate Negative, Urine Bilirubin Negative, Urine Urobilinogen 0.2, Ur Leukocyte Esterase 2+ A, Urine RBC Occasional, Urine WBC 5-10, Ur Squamous Epith Cells 3-5, Urine Bacteria Trace 07/26/18 17:06: POC Glucose 112 H 07/26/18 20:27: POC Glucose 108 07/27/18 05:58: WBC 7.9, RBC 3.81 L, Hgb 11.8 L D, Hct 35.7 L, MCV 93.7, MCH 30.9, MCHC 33.0, RDW 13.9, Plt Count 174, MPV 9.7, Neut % (Auto) 77.5, Lymph % (Auto) 11.9, [place] % (Auto) 9.7 H, Eos % (Auto) 0.4, Baso % (Auto) 0.4, Neut # (Auto) 6.1, Lymph # (Auto) 1.0, [place] # (Auto) 0.8, Eos # (Auto) 0.0, Baso # (Auto) 0.0 07/27/18 05:58: Sodium 137, Potassium 5.4 H, Chloride 105, Carbon Dioxide 26, Anion Gap 11.4, BUN 26 H D, Creatinine 1.15 H, Estimated Creat Clear 57, Estimated GFR 45 L, Est GFR ( Amer) 55 L, Glucose 121 H, Calcium 8.3 L 07/27/18 06:02: POC Glucose 117 H I & O for Last 24 hours: Intake & Output 07/24/18 07/25/18 07/26/18 07/27/18 23:59 23:59 23:59 23:59 Intake Total 0 / 0 2076 Output Total 250 / 250 Balance -250 / -250 2076 Weight 201 lb 5 oz 203 lb 9 oz Narrative: Her EKG shows atrial fibrillation with a rate of 77 and poor R wave progression. Her preliminary echocardiogram shows a normal ejection fraction. She does have some right ventricular dilatation. There is a loculated posterior 2.3 cm pericardial effusion. - Constitutional no acute distress, obese - *Routine HEENT Exam Head: Present: normocephalic, atraumatic Eye: Present: EOMI, PERRL ENT: Present: mucous membranes moist - *Routine Neck Exam Present: supple, full ROM, normal carotid upstroke. Absent: JVD, carotid bruit, lymphadenopathy - *Routine Respiratory Exam Present: CTA bilaterally - *Routine Cardiovascular Exam Present: Normal S1, Normal S2, irregularly irregular. Absent: murmur, gallop - *Routine Abdominal Exam Present: soft, normoactive bowel sounds. Absent: tenderness, distended - *Routine Extremities Exam Present: full ROM, pulses intact, normal capillary refill. Absent: cyanosis, clubbing, edema - *Routine Skin Exam Present: intact, warm. Absent: erythema, rash - *Routine Neurological Exam Present: alert, oriented X3, CN II-XII intact. Absent: sensory deficit, motor deficit - Routine Psychiatric Exam Present: normal thought process - Detailed Eye Exam Eyelids: Left normal inspection Assessment and Plan (1) Weight loss Current visit: Yes Status: Acute Category: Medical Code(s): R63.4 - Abnormal weight loss (2) Abdominal pain Current visit: Yes Status: Acute Category: Medical Code(s): R10.9 - Unspecified abdominal pain (3) UTI (urinary tract infection) Current visit: No Status: Acute Category: Medical Code(s): N39.0 - Urinary tract infection, site not specified (4) Vomiting Current visit: No Status: Acute Category: Medical Code(s): R11.10 - Vomiting, unspecified (5) Cholelithiasis Current visit: Yes Status: Acute Category: Medical Code(s): K80.20 - Calculus of gallbladder without cholecystitis without obstruction (6) Pericardial effusion Current visit: Yes Status: Acute Category: Medical Code(s): I31.3 - Pericardial effusion (noninflammatory) (7) Acute kidney injury Current visit: Yes Status: Acute Category: Medical Code(s): N17.9 - Acute kidney failure, unspecified (8) Hyperkalemia Current visit: Yes Status: Acute Category: Medical Code(s): E87.5 - Hyperkalemia (9) Coronary artery disease Current visit: Yes Status: Chronic Category: Medical Code(s): I25.10 - Atherosclerotic heart disease of [place] coronary artery without angina pectoris (10) Hypertension Current visit: Yes Status: Chronic Category: Medical Code(s): I10 - Essential (primary) hypertension (11) Hyperlipidemia Current visit: Yes Status: Chronic Category: Medical Code(s): E78.5 - Hyperlipidemia, unspecified (12) Diabetes mellitus Current visit: Yes Status: Chronic Category: Medical Code(s): E11.9 - Type 2 diabetes mellitus without complications (13) A-fib Current visit: No Status: Chronic Qualifiers: Atrial fibrillation type: chronic Qualified Code(s): I48.2 - Chronic atrial fibrillation Category: Medical Code(s): I48.91 - Unspecified atrial fibrillation - Assessment and plan all Dx Assessment and Plan for all problems:: Plan: 1. The patient was admitted to the hospital for nausea vomiting and weight loss. She was being treated for UTI on an outpatient basis and the patient was noncompliant with her medicines and her UTI worsened. The patient is being treated for her UTI per her primary care provider. 2. The patient did have a CAT scan of her abdomen which showed some pericardial thickness which was concerning for a pericardial effusion. She did have an echocardiogram that does show a loculated posterior 2.3 cm effusion. Her right ventricle is dilated. However, her ejection fraction is normal. 3. Because her effusion is loculated and her ejection fraction is normal Dr. Menchaca recommends no further workup or treatment for this at this time. She may benefit from a low-dose diuretic in the future but with all of her nausea and vomiting and weight loss, he does not recommend diuresis at this time. There appears to be no constrictive pericarditis on echocardiogram. 4. The patient does have a history of coronary artery disease with stents in the past. She denies any chest pain or pressure currently. No plans for invasive cardiac testing at this time. 5. Her blood pressure is well controlled. 6. Her LDL goal is less than 55. 7. The patient does have chronic atrial fibrillation. She is currently rate controlled. 8. The patient is on long-term anticoagulation with Xarelto. 9. The patient is diabetic. She does need aggressive control of her diabetes. This is managed by her primary care provider. 10. The patient does need to follow with cardiology regularly on an outpatient basis as she has not seen a shallot cleaner in several years. We are more than happy to take care of the patient on an outpatient basis for all of her cardiology needs. She does need to follow-up in 1-2 weeks on an outpatient basis with cardiology once she is discharged from the hospital. No further recommendations at this time from a cardiac standpoint. As mentioned before, she will likely need some low-dose diuretics in the future. Thank you for the opportunity to help participate in the care of this patient.
[2018-07-27 12:03] LABS: Chol/HDL Ratio 3.2 (1-3.5)
[2018-07-28 06:18] LABS: Basophils % 0.4 % (0.1-2.0); Eosinophils # 0.1 K/mm3 (0.0-0.4); Eosinophils % 0.7 % (0.1-12.0); Hematocrit 33.5 % (37.0-47.0); Hemoglobin 10.9 g/dL (12.2-16.2); Lymphocytes # 0.8 K/mm3 (0.7-4.5); Lymphocytes % 12.7 % (10-50); Mean Corpuscular HGB Conc 32.4 g/dL (31.8-35.4); Mean Corpuscular Hemoglobin 31.1 pg (27.0-31.2); Mean Corpuscular Volume 95.9 fl (81-99); Mean Platelet Volume 9.9 fl (7.4-10.4); Monocytes # 0.6 K/mm3 (0.1-1.0); Monocytes % 9.7 % (1.7-9.3); Neutrophils % 76.6 % (37.0-80.0); Platelet Count 162 K/mm3 (142-424); Red Blood Count 3.49 M/mm3 (4.20-5.40); Red Cell Distribution Width 13.8 % (11.5-17.5); White Blood Count 6.6 K/mm3 (4.8-10.8)
--- NOTE | 2018-07-28 07:46 | Consult Report ---
*Admission Date: 07/26/18 *Chief complaint: Nausea and vomiting *History of present illness: This is an 78-year-old female seen in consultation from the service of Dr. Aguilar for evaluation regarding cholelithiasis. She has been admitted after presenting with worsening nausea/vomiting and weight loss. Evaluation has included a CT scan of the abdomen and an ultrasound of the right upper quadrant. Cholelithiasis noted. Report of sonographic Rasmussen's also noted; however, the patient states that her abdominal pain is "mostly low down (in the pelvis)". Please see forwarded copy of HPI from admission H&P below. 78-year-old white female with multiple medical problems including hypertension, type 2 diabetes and diastolic CHF who presented to my office today with continuing problems with nausea and weight loss. She had been diagnosed with urinary tract infection, treated as an outpatient last weekend, but had failed to improve and apparently has not been taking her oral medications for urinary tract infection because of nausea and severe vomiting. In the office she was found to be dehydrated, have a 10 pound weight loss over the past week and was admitted to hospital for further evaluation and further diagnostic testing. Review of Systems - Constitutional Denies chills - Eyes Denies change in vision - *Cardiovascular Denies chest pain - *Respiratory Denies cough - *Gastrointestinal Reports abdominal pain, Reports nausea, Reports vomiting, Denies vomiting blood, Denies bright, red blood in stools Comments: mostly in lower abdomen/pelvis - *Neurologic Denies abnormal walking, Denies abnormal hearing, Denies abnormal movements, Denies burning sensations, Denies headache(s) - Psychiatric Denies anxiety [facility] History Medical History: Reports:: Atrial Fibrillation, Coronary Artery Disease, Diabetes Mellitus Type 2, Hyperlipidemia, Hypertension Denies:: Diabetes Mellitus Type 1 *Have you ever received a pneumonia vaccine?: No *Have you received a flu vaccine this season?: No Other Medical History: Reports: Cataracts, Hypothyroidism, Thyroid Disease Other Surgeries: Yes: Cardiac Catheterization (stents), Coronary Stent - *Social History Smoking Status: Former smoker Alcohol Intake: never *Occupational Status:: unemployed, retired Housing: house *Travel in the last 8 weeks: None - Psychiatric History Expresses thoughts of harming self/others: None Suicide Plan Description: No Plan Family Hx:: No significant family history, Non-contributory Meds Home Medications Medication Instructions Recorded Confirmed Type Aspirin [Aspirin 81mg chewable 81 mg PO DAILY 05/24/17 07/26/18 History tab] Levothyroxine Sodium 50 mcg PO DAILY 05/24/17 07/26/18 History [Levothyroxine 50mcg (0.05mg) Tab] Metformin HCl [Glucophage 500mg 1,000 mg PO BID 05/24/17 07/26/18 History Tablet] Omeprazole Magnesium [Prilosec Otc 20 mg PO BID 05/24/17 07/26/18 History 20mg Tab] Rivaroxaban [Xarelto] 20 mg PO DAILY 07/23/17 07/26/18 History Nitrofurantoin Monohyd/M-Cryst 100 mg PO BID #14 capsule 07/19/18 07/26/18 Rx [Macrobid 100 mg Capsule] Ondansetron [Zofran 4mg ODT] 4 mg PO TIDP PRN #10 tab.rapdis 07/19/18 07/26/18 Rx Atorvastatin Calcium [Atorvastatin 40 mg PO HS 07/26/18 07/26/18 History 40mg Tab] Carvedilol [Carvedilol 25mg Tab] 25 mg PO BID 07/26/18 07/26/18 History Lisinopril [Lisinopril 40mg Tablet] 40 mg PO DAILY 07/26/18 07/26/18 History hydroCHLOROthiazide [HCTZ 25mg 25 mg PO DAILY 07/26/18 07/26/18 History tab] Allergies Allergy/AdvReac Type Severity Reaction Status Date / Time codeine [CODEINE] Allergy Unknown Verified 06/06/17 18:01 Exam Vital signs and Labs for Last 24 Hours: Temp Pulse Resp BP Pulse Ox 98.7 F 74 17 130/68 97 07/28/18 04:00 07/28/18 04:00 07/28/18 04:00 07/28/18 04:00 07/28/18 04:00 Laboratory Results - last 24 hr 07/27/18 05:58: Triglycerides 97, Cholesterol 107 L, LDL Cholesterol 55, VLDL Cholesterol 19, HDL Cholesterol 33, Cholesterol/HDL Ratio 3.2 07/27/18 11:56: POC Glucose 150 H 07/27/18 16:33: POC Glucose 144 H 07/27/18 20:07: POC Glucose 185 H 07/28/18 05:35: WBC 6.6, RBC 3.49 L, Hgb 10.9 L, Hct 33.5 L, MCV 95.9, MCH 31.1, MCHC 32.4, RDW 13.8, Plt Count 162, MPV 9.9, Neut % (Auto) 76.6, Lymph % (Auto) 12.7, [place] % (Auto) 9.7 H, Eos % (Auto) 0.7, Baso % (Auto) 0.4, Neut # (Auto) 5.0, Lymph # (Auto) 0.8, [place] # (Auto) 0.6, Eos # (Auto) 0.1, Baso # (Auto) 0.0 07/28/18 06:23: POC Glucose 136 H I & O for Last 24 hours: Intake & Output 07/25/18 07/26/18 07/27/18 07/28/18 11:59 11:59 11:59 11:59 Intake Total 2077 / 2077 3430 / 3430 Output Total 250 / 250 Balance 1827 / 1827 3430 / 3430 Weight 203 lb Microbiology Reports for the Last 24 Hours: Microbiology 07/26/18 16:15 Urine,Clean Catch Urine Culture - Final Multiple organisms, suggests contamination. - Constitutional no acute distress - *Routine Respiratory Exam Absent: respiratory distress - *Routine Cardiovascular Exam Comments: irregular - *Routine Abdominal Exam Present: soft, tenderness. Absent: distended Comments: some TTP in lower abdomen. single focus of TTP in epigastrum. Results - Labs 07/28/18 05:35 07/27/18 05:58 Laboratory Results - last 24 hr 07/27/18 05:58: Triglycerides 97, Cholesterol 107 L, LDL Cholesterol 55, VLDL Cholesterol 19, HDL Cholesterol 33, Cholesterol/HDL Ratio 3.2 07/27/18 11:56: POC Glucose 150 H 07/27/18 16:33: POC Glucose 144 H 07/27/18 20:07: POC Glucose 185 H 07/28/18 05:35: WBC 6.6, RBC 3.49 L, Hgb 10.9 L, Hct 33.5 L, MCV 95.9, MCH 31.1, MCHC 32.4, RDW 13.8, Plt Count 162, MPV 9.9, Neut % (Auto) 76.6, Lymph % (Auto) 12.7, [place] % (Auto) 9.7 H, Eos % (Auto) 0.7, Baso % (Auto) 0.4, Neut # (Auto) 5.0, Lymph # (Auto) 0.8, [place] # (Auto) 0.6, Eos # (Auto) 0.1, Baso # (Auto) 0.0 07/28/18 06:23: POC Glucose 136 H - Imaging CT scan - abdomen: report reviewed, image reviewed CT scan - pelvis: report reviewed, image reviewed US - abdomen: report reviewed, image reviewed Assessment and Plan (1) Weight loss Current visit: Yes Status: Acute Category: Medical Code(s): R63.4 - Abnormal weight loss (2) Abdominal pain Current visit: Yes Status: Acute Category: Medical Code(s): R10.9 - Unspecified abdominal pain (3) UTI (urinary tract infection) Current visit: No Status: Acute Category: Medical Code(s): N39.0 - Urinary tract infection, site not specified (4) Vomiting Current visit: No Status: Acute Category: Medical Code(s): R11.10 - Vomiting, unspecified (5) Cholelithiasis Current visit: Yes Status: Acute Qualifiers: Cholelithiasis location: gallbladder Cholecystitis presence: without cholecystitis Biliary obstruction: without biliary obstruction Qualified Code(s): K80.20 - Calculus of gallbladder without cholecystitis without obstruction Category: Medical Code(s): K80.20 - Calculus of gallbladder without cholecystitis without obstruction The patient's symptoms may be due to cholelithiasis; however, they may also be secondary to enteritis or other etiology. She does not have abnormal liver function studies and does not have leukocytosis. She has no evidence of cholecystitis. I have discussed the risks and benefits of cholecystectomy. She does have significant comorbid conditions and wishes to pursue surgery "only if it is absolutely necessary". -Low-fat/bland diet -Serial abdominal exams -Cardiology clearance for potential cholecystectomy and for holding Xarelto if surgery is planned (although currently holding on scheduling any intervention) (6) Pericardial effusion Current visit: Yes Status: Acute Category: Medical Code(s): I31.3 - Pericardial effusion (noninflammatory) (7) Acute kidney injury Current visit: Yes Status: Acute Category: Medical Code(s): N17.9 - Acute kidney failure, unspecified (8) Hyperkalemia Current visit: Yes Status: Acute Category: Medical Code(s): E87.5 - Hyperkalemia (9) Coronary artery disease Current visit: Yes Status: Chronic Category: Medical Code(s): I25.10 - Atherosclerotic heart disease of [place] coronary artery without angina pectoris (10) Hypertension Current visit: Yes Status: Chronic Category: Medical Code(s): I10 - Essential (primary) hypertension (11) Hyperlipidemia Current visit: Yes Status: Chronic Category: Medical Code(s): E78.5 - Hyperlipidemia, unspecified (12) Diabetes mellitus Current visit: Yes Status: Chronic Category: Medical Code(s): E11.9 - Type 2 diabetes mellitus without complications (13) A-fib Current visit: No Status: Chronic Qualifiers: Atrial fibrillation type: chronic Qualified Code(s): I48.2 - Chronic atrial fibrillation Category: Medical Code(s): I48.91 - Unspecified atrial fibrillation
[2018-07-28 08:12] LABS: Albumin Level 2.2 gm/dL (3.4-5.0); Albumin/Globulin Ratio 0.7 (1.1-1.8); Anion Gap 14.2 mEq/L (5-15); Bilirubin,Total 0.4 mg/dL (0.2-1.0); Calcium 8.2 mg/dL (8.5-10.1); Globulin 3.2 gm/dl (1.3-3.2); Potassium 5.2 mmoL/L (3.5-5.1); Total Protein,Serum 5.4 gm/dL (6.4-8.2)
--- NOTE | 2018-07-28 09:47 | Progress Note ---
Subjective Date: 07/28/18 Time: 09:44 Principal diagnosis: Abdominal pain Interval history: 78-year-old white female in bedside chair in no acute distress. Patient anticipates discharge home later today. She does not want surgery for her gallstones at this time. She denies chest pain, pressure or tightness. Exam Vital signs and Labs for Last 24 Hours: Temp Pulse Resp BP Pulse Ox 98.2 F 84 22 148/66 H 94 L 07/28/18 07:48 07/28/18 07:48 07/28/18 07:48 07/28/18 07:48 07/28/18 07:48 Laboratory Results - last 24 hr 07/27/18 05:58: Triglycerides 97, Cholesterol 107 L, LDL Cholesterol 55, VLDL Cholesterol 19, HDL Cholesterol 33, Cholesterol/HDL Ratio 3.2 07/27/18 11:56: POC Glucose 150 H 07/27/18 16:33: POC Glucose 144 H 07/27/18 20:07: POC Glucose 185 H 07/28/18 05:35: WBC 6.6, RBC 3.49 L, Hgb 10.9 L, Hct 33.5 L, MCV 95.9, MCH 31.1, MCHC 32.4, RDW 13.8, Plt Count 162, MPV 9.9, Neut % (Auto) 76.6, Lymph % (Auto) 12.7, [place] % (Auto) 9.7 H, Eos % (Auto) 0.7, Baso % (Auto) 0.4, Neut # (Auto) 5.0, Lymph # (Auto) 0.8, [place] # (Auto) 0.6, Eos # (Auto) 0.1, Baso # (Auto) 0.0 07/28/18 05:35: Sodium 140, Potassium 5.2 H, Chloride 108 H, Carbon Dioxide 23, Anion Gap 14.2, BUN 18 D, Creatinine 1.02, Estimated Creat Clear 64, Estimated GFR 52 L, Est GFR ( Amer) 63, Glucose 123 H, Calcium 8.2 L, Total Bilirubin 0.4, AST 13 L D, ALT 17 D, Alkaline Phosphatase 41 L, Total Protein 5.4 L, Albumin 2.2 L, Globulin 3.2, Albumin/Globulin Ratio 0.7 L 07/28/18 06:23: POC Glucose 136 H I & O for Last 24 hours: Intake & Output 07/25/18 07/26/18 07/27/18 07/28/18 11:59 11:59 11:59 11:59 Intake Total 7 / 2077 3430 / 3430 Output Total 250 / 250 Balance 1827 / 1827 3430 / 3430 Weight 203 lb Microbiology Reports for the Last 24 Hours: Microbiology 07/26/18 16:15 Urine,Clean Catch Urine Culture - Final Multiple organisms, suggests contamination. - *Routine HEENT Exam Head: Present: normocephalic Eye: Present: EOMI, PERRL ENT: Present: mucous membranes moist - *Routine Respiratory Exam Present: CTA bilaterally. Absent: accessory muscle use, rales, rhonchi, wheezes - *Routine Cardiovascular Exam Present: RRR. Absent: murmur, gallop, rubs - *Routine Neurological Exam Present: alert, oriented X3, moving all extremities Progress Note: A&P (1) Weight loss Status: Acute Current Visit: Yes (2) Abdominal pain Status: Acute Current Visit: Yes (3) UTI (urinary tract infection) Status: Acute Current Visit: No (4) Vomiting Status: Acute Current Visit: No (5) Cholelithiasis Status: Acute Current Visit: Yes (6) Pericardial effusion Status: Acute Current Visit: Yes (7) Acute kidney injury Status: Acute Current Visit: Yes (8) Hyperkalemia Status: Acute Current Visit: Yes (9) Coronary artery disease Status: Chronic Current Visit: Yes (10) Hypertension Status: Chronic Current Visit: Yes (11) Hyperlipidemia Status: Chronic Current Visit: Yes (12) Diabetes mellitus Status: Chronic Current Visit: Yes (13) A-fib Status: Chronic Current Visit: No Assessment and Plan for All Diagnoses:: 1. Patient is clear from a cardiac standpoint to proceed with cholecystectomy if needed. The patient relates she does not want surgery at this time and is anticipating discharge home today. 2. Patient will need outpatient follow-up with us and possible noninvasive workup of her coronary artery disease for routine follow-up. She thinks her coronary stents were placed at least 10 years ago in [facility] in [place], [place]. 3. Continue home medications of aspirin, Coreg and Xarelto. Consider resuming lisinopril/HCTZ as an outpatient if renal status stable and hyperkalemia resolved.
--- NOTE | 2018-07-28 13:41 | Discharge Summary ---
General - General Admission date:: 07/26/18 Discharge date: 07/28/18 HPI HPI: 78-year-old white female with multiple medical problems including hypertension, type 2 diabetes and diastolic CHF who presented to my office today with continuing problems with nausea and weight loss. She had been diagnosed with urinary tract infection, treated as an outpatient last weekend, but had failed to improve and apparently has not been taking her oral medications for urinary tract infection because of nausea and severe vomiting. In the office she was found to be dehydrated, have a 10 pound weight loss over the past week and was admitted to hospital for further evaluation and further diagnostic testing. Hospital Course Hospital Course: Patient was admitted for further evaluation of abdominal pain and weight loss. Labs revealed hyperkalemia and SHALONDA which resolved with IV hydration and holding EMMANUEL-I and HCTZ. UA was suspicious for persistent UTI and she was given IV infusions of rocephin. CT scan of the abdomen/pelvis showed ? pericardial effusion and cholelithiasis. Gallbladder US was obtained which showed stones without inflammation or distention. Surgery was consulted who recommends conservative management at this time as her pain has resolved. Echo was obtained which confirmed 2.3 cm posterior pericardial effusion. Cardiology was consulted who did not recommend any medication changes or interventions at this time. They cleared her to proceed with cholecystectomy if her condition worsens and surgery elects to do so. Diet was advanced to low fat which she tolerated with abdominal pain or nausea. She feels better and desires to go home. Discharge home on cefdinir for UTI. Advised to increase oral fluid intake. FU with myself in [place] next Wednesday. BMP at that time. Consider restarting lisinopril and HCTZ based on blood pressure and kidney function. Patient will need to FU with surgery and cardiology as well, both have been scheduled. Objective Vital signs: Temp Pulse Resp BP Pulse Ox 98.2 F 84 22 148/66 H 94 L 07/28/18 07:48 07/28/18 07:48 07/28/18 07:48 07/28/18 07:48 07/28/18 07:48 Narrative: Alert and oriented x3. Rate and rhythm regular. Trace LE edema. Lung sounds clear and equal bilaterally. Abdomen soft and nontender. Results Labs on day of discharge: Labs from last 24 hours 03/28/19 03/28/19 03/28/19 06:23 05:35 05:35 WBC 6.6 RBC 3.49 L Hgb 10.9 L Hct 33.5 L MCV 95.9 MCH 31.1 MCHC 32.4 RDW 13.8 Plt Count 162 MPV 9.9 Neut % (Auto) 76.6 Lymph % (Auto) 12.7 [place] % (Auto) 9.7 H Eos % (Auto) 0.7 Baso % (Auto) 0.4 Neut # (Auto) 5.0 Lymph # (Auto) 0.8 [place] # (Auto) 0.6 Eos # (Auto) 0.1 Baso # (Auto) 0.0 Sodium 140 Potassium 5.2 H Chloride 108 H Carbon Dioxide 23 Anion Gap 14.2 BUN 18 D Creatinine 1.02 Estimated Creat Clear 64 Estimated GFR 52 L Est GFR ( Amer) 63 Glucose 123 H POC Glucose 136 H Calcium 8.2 L Total Bilirubin 0.4 AST 13 L D ALT 17 D Alkaline Phosphatase 41 L Total Protein 5.4 L Albumin 2.2 L Globulin 3.2 Albumin/Globulin Ratio 0.7 L 07/27/18 07/27/18 20:07 16:33 WBC RBC Hgb Hct MCV MCH MCHC RDW Plt Count MPV Neut % (Auto) Lymph % (Auto) [place] % (Auto) Eos % (Auto) Baso % (Auto) Neut # (Auto) Lymph # (Auto) [place] # (Auto) Eos # (Auto) Baso # (Auto) Sodium Potassium Chloride Carbon Dioxide Anion Gap BUN Creatinine Estimated Creat Clear Estimated GFR Est GFR ( Amer) Glucose POC Glucose 185 H 144 H Calcium Total Bilirubin AST ALT Alkaline Phosphatase Total Protein Albumin Globulin Albumin/Globulin Ratio DS: Diagnosis - Discharge Diagnosis (1) Weight loss Status: Acute (2) Abdominal pain Status: Resolved (3) UTI (urinary tract infection) Status: Acute (4) Vomiting Status: Resolved (5) Cholelithiasis Status: Acute (6) Pericardial effusion Status: Acute (7) Acute kidney injury Status: Acute (8) Hyperkalemia Status: Acute (9) Coronary artery disease Status: Chronic (10) Hypertension Status: Chronic (11) Hyperlipidemia Status: Chronic (12) Diabetes mellitus Status: Chronic (13) A-fib Status: Chronic Discharge Plan - Patient Discharge Instructions ACTIVITY: Continue current activity DIET: low fat, low cholesterol Patient Instructions: Acute Abdominal Pain, DI for Gallstones, DI for Urinary Tract Infection (UTI), DI for Hyperkalemia - Follow up Plan Follow up with: Ray Link PA [Physician Sap Security Architect] - [address] APRN [Nurse Practitioner] - 08/05/18 Ilia Griffin MD [Staff Physician] - 1 week Disposition: Home, Self-Assisted Medications: Home Medications Medication Instructions Recorded Confirmed Type Aspirin [Aspirin 81mg chewable 81 mg PO DAILY 05/24/17 07/26/18 History tab] Levothyroxine Sodium 50 mcg PO DAILY 05/24/17 07/26/18 History [Levothyroxine 50mcg (0.05mg) Tab] Metformin HCl [Glucophage 500mg 1,000 mg PO BID 05/24/17 07/26/18 History Tablet] Omeprazole Magnesium [Prilosec Otc 20 mg PO BID 05/24/17 07/26/18 History 20mg Tab] Rivaroxaban [Xarelto 20mg Tablet] 20 mg PO DAILY 07/23/17 07/26/18 History Atorvastatin Calcium [Atorvastatin 40 mg PO HS 07/26/18 07/26/18 History 40mg Tab] Carvedilol [Carvedilol 25mg Tab] 25 mg PO BID 07/26/18 07/26/18 History Cefdinir [Omnicef 300mg Capsule] 300 mg PO BID #20 cap 07/28/18 Rx Prescriptions/Medication Reconciliation: New Cefdinir [Omnicef 300mg Capsule] 300 mg PO BID #20 cap Continue Levothyroxine Sodium [Levothyroxine 50mcg (0.05mg) Tab] 50 mcg PO DAILY Metformin HCl [Glucophage 500mg Tablet] 1,000 mg PO BID Rivaroxaban [Xarelto 20mg Tablet] 20 mg PO DAILY Carvedilol [Carvedilol 25mg Tab] 25 mg PO BID Atorvastatin Calcium [Atorvastatin 40mg Tab] 40 mg PO HS Aspirin [Aspirin 81mg chewable tab] 81 mg PO DAILY Omeprazole Magnesium [Prilosec Otc 20mg Tab] 20 mg PO BID Discontinued Ondansetron [Zofran 4mg ODT] 4 mg PO TIDP PRN #10 tab.rapdis PRN Reason: Nausea And Vomiting Nitrofurantoin Monohyd/M-Cryst [Macrobid 100 mg Capsule] 100 mg PO BID #14 capsule hydroCHLOROthiazide [HCTZ 25mg tab] 25 mg PO DAILY Lisinopril [Lisinopril 40mg Tablet] 40 mg PO DAILY
--- NOTE | 2018-07-28 17:58 | Cardiology Report ---
PROCEDURE: 2-D M-mode and color Doppler study INDICATIONS FOR THE TEST: Chest pain COPD Heart Murmur Tobacco Smoking Palpitations Fatigue Syncope Edema Hypertension+Diabetes Mellitus+ Rheumatic Fever SOB MCMILLAN Obesity Hyperlipidemia Family History HD Additional History CHF, STENTS PATIENT INFORMATION HEIGHT: 64 WEIGHT:206 GENDER: Female B/P: 2-D/M-MODE INTERPRETATION: 2-D MEASUREMENTS OBSERVED VALUES IN CMS Right Ventricular Dimension (RVDd) 2.5 Interventricular Septum (Thickness)(IVsd) 1.6 Left Ventricular Internal Dimensions(LVIDd) 3.8 Left Ventricular Posterior Wall (Thickness)(LVPWd) 1.3 Aortic Root 2.8 Aortic Cusp Separation 1.5 Left Atrial Dimensions (LAD) 4.4 2D 1. Left atrium is mildly enlarged, left ventricle is normal size, mild concentric left ventricular hypertrophy, visually estimated ejection fraction 55% with no regional wall motion abnormality. 2. The right atrium and right ventricle are mildly enlarged with normal contractility. 3. The aortic valve is thickened and calcified leaflet continue to display mobility. 4. The mitral valve has mitral calcification leaflets are minimally thickened. 5. The pulmonic valve is poorly visualized 6. The tricuspid valve leaflets are minimally thickened. 7. There is small pericardial effusion noted. DOPPLER INTERROGATION: Doppler interrogation of the aortic, mitral and tricuspid valvular presence of mild mitral and tricuspid regurgitation, calculated right ventricular systolic pressure is 40 mmHg consistent with mild pulmonary hypertension, mild aortic insufficiency is also seen. Inferior vena cava is not well visualized CONCLUSION: 1. Mildly enlarged left atrium, normal left ventricular size, mild concentric left ventricular hypertrophy, visually estimated ejection fraction 55% with no regional wall motion abnormality, diastolic parameters are inconclusive due to atrial fibrillation. 2. Mildly enlarged right ventricle with normal contractility 3. Thickened and calcified aortic valve without aortic stenosis, there is mild aortic insufficiency. 4. Mild mitral and tricuspid regurgitation, calculated right ventricular systolic pressure is 40 mmHg consistent with mild pulmonary hypertension, inferior vena cava is not well visualized 5. Small pericardial effusion noted.
== END 2018-07-28 11:49 | disposition home or self-care (01) ==
LOC: 2ND 12:50 → RAD 12:50
PROVIDERS: ADMIT Internal Medicine Adolescent Medicine; ATTEND Internal Medicine Adolescent Medicine
CPT/HCPCS: 36415; 72131; 74178; 76705; 80048; 80053; 80061; 81001; 82962; 83735; 85025; 87086; 93005; 93306; G0378; J2405; Q9967

== ENCOUNTER 2019-09-11 12:40 | Emergency (ER) | payer MEDICARE, MEDICAID, SELFPAY ==
[2019-09-11 12:37] VITALS: BP 141/80; PULSE 90; RESP 18; O2SAT 94; BMI 38.0
--- NOTE | 2019-09-11 12:46 | XR_ITS ---
PROCEDURE: XR CHEST PORTABLE CLINICAL HISTORY: pain Chest pain, shortness of breath COMPARISON: CXR1 CHEST-PORTABLE from 03/29/2016 CXR2 XR chest AP from 06/06/2017 [id number] XR chest portable from 07/19/[id number] abdomen pelvis wo/w con from 07/26/2018 FINDINGS: There is cardiomegaly without failure. There are increased markings in the right lower lobe. This is had a similar appearance on previous exams and is felt to be due to soft tissue attenuation. There is a small left pleural effusion. No acute bony abnormalities. IMPRESSION: Cardiomegaly with small left effusion Dictated by: Norman Camarillo MD 09/11/2019 13:28 Electronically signed by Norman Camarillo MD in [place] 09/11/2019 13:28
--- NOTE | 2019-09-11 12:51 | ECG_ITS ---
APPROVED REPORT Exam: Resting ECG HR:83 bpm ECG Measurements Heart Rate 83 AXES QRSd 70 QRS 59 QT 366 T 46 QTc 430 <Conclusion> Atrial fibrillation Low voltage QRS Abnormal ECG Electronically signed by : Papo Julio, 09/11/2019 16:46:44
[2019-09-11 12:53] LABS: Basophils # 0.1 K/mm3 (0-0.2); Basophils % 0.7 % (0.1-2.0); Eosinophils # 0.1 K/mm3 (0.0-0.4); Eosinophils % 1.4 % (0.1-12.0); Hematocrit 33.7 % (37.0-47.0); Hemoglobin 10.7 g/dL (12.2-16.2); Lymphocytes # 1.4 K/mm3 (0.7-4.5); Lymphocytes % 17.6 % (10-50); Mean Corpuscular HGB Conc 31.7 g/dL (31.8-35.4); Mean Corpuscular Hemoglobin 27.9 pg (27.0-31.2); Mean Platelet Volume 9.6 fl (7.4-10.4); Monocytes # 0.7 K/mm3 (0.1-1.0); Neutrophils # 5.7 K/mm3 (1.8-7.8); Neutrophils % 71.3 % (37.0-80.0); Platelet Count 268 K/mm3 (142-424); Red Blood Count 3.84 M/mm3 (4.20-5.40)
[2019-09-11 12:57] LABS: Anion Gap 10.5 mEq/L (5-15); Blood Urea Nitrogen 17 mg/dl (7-17); Calcium 9.1 mg/dl (8.4-10.2); Carbon Dioxide 29 mmol/L (22.0-30.0); Chloride 99 mmol/L (98-107); Creatinine Clearance Estimated 61 mL/min (50-200); Estimated Glomerular Filt Rate 39 ml/min (>60); GFR (African American) 48 ML/MIN (>60); Glucose 275 mg/dl (74-100); Potassium 5.5 mmoL/L (3.5-5.1); Sodium 133 mmol/L (136-145)
[2019-09-11 13:06] LABS: NT Pro Brain Natriuretic Pep. 2200 pg/mL (0-450)
[2019-09-11 13:11] LABS: Troponin I < 0.01 ng/ml (0.00-0.034)
[2019-09-11 13:24] VITALS: BP 129/87; PULSE 89; O2SAT 96
--- NOTE | 2019-09-11 14:20 | HMH.EDNVD ---
ED Disposition Clinical Impression: Gastroenteritis Disposition: Home, Self-Care Condition on Discharge: Good Instructions: DI for Nausea -- Adult, DI for Nausea -- Child, DI for Diarrhea and Traveler's Diarrhea -- Adult, DI for Diarrhea and Traveler's Diarrhea -- Child Prescriptions: Ondansetron [Zofran 4mg ODT] 4 mg PO TID PRN 4 Days #15 tab.rapdis PRN Reason: Nausea Transmission Status: Pending to [facility] Referrals: Adriano Aguilar MD [Primary Care Provider] - - Critical Care Critical Care Time: No Attestation: On 09/11/19, the high probability of a clinically significant, sudden or life threatening deterioration of the following system(s) required my full and direct attention, intervention and personal management. The time I documented below is in addition to time spent performing reported procedures but includes the following listed in this critical care notation. Medical Decision Making - Medical Records Medical records reviewed: Yes: I reviewed the patient's medical records. - Haseeb Inquiry Pt receiving controlled substance: No Vital Signs: 09/11/19 12:37 09/11/19 13:24 Pulse Rate [Radial] 90 89 Respiratory Rate 18 Blood Pressure [Right Arm] 141/80 H 129/87 Blood Pressure Mean [Right Arm] 100 101 Blood Pressure Source [Right Arm] Automatic Cuff Automatic Cuff Blood Pressure Position [Right Arm] Sitting Sitting 02 Sat by Pulse Oximetry 94 L 96 Oxygen Delivery Method Room Air Room Air - Lab Data Lab results reviewed: Yes: I reviewed the patient's lab results. Lab Results 09/11/19 11:58: WBC 8.0, RBC 3.84 L, Hgb 10.7 L, Hct 33.7 L, MCV 88.0, MCH 27.9, MCHC 31.7 L, RDW 14.0, Plt Count 268, MPV 9.6, Neut % (Auto) 71.3, Lymph % (Auto) 17.6, [place] % (Auto) 9.0, Eos % (Auto) 1.4, Baso % (Auto) 0.7, Neut # (Auto) 5.7, Lymph # (Auto) 1.4, [place] # (Auto) 0.7, Eos # (Auto) 0.1, Baso # (Auto) 0.1 09/11/19 11:58: Sodium 133 L, Potassium 5.5 H, Chloride 99, Carbon Dioxide 29, Anion Gap 10.5, BUN 17, Creatinine 1.30 H, Estimated Creat Clear 61, Estimated GFR 39 L, Est GFR ( Amer) 48 L, Glucose 275 H, Calcium 9.1, Troponin I < 0.01 09/11/19 11:58: NT-Pro-B Natriuret Pep 2200 H Result diagrams: 09/11/19 11:58 09/11/19 11:58 Orders (Tests/Meds): ED MEDICATIONS Discontinued Medications Generic Name Dose Route Start Last Admin Trade Name Freq PRN Reason Stop Dose Admin Sodium Chloride 1,000 mls @ 999 mls/hr 09/11/19 12:45 09/11/19 12:59 Sod Chlor 0.9% 1000ml Bag IV 09/11/19 13:45 999 mls/hr .Q1H1M JUSTIN Administration ORDERS Category Date Time Status Troponin I Q3H Lab 09/11/19 15:45 Ordered Troponin I Q3H Lab 09/11/19 18:45 Ordered - Radiology Data #1 Image(s): Chest Preliminary Findings: Normal/NAD Nausea/Vomiting/Diarrhea HPI - General Chief complaint: Nausea/Vomiting/Diarrhea Stated complaint: N/V/D Time Seen by Provider: 09/11/19 14:20 Mode of Arrival: EMS Source of Information: Patient Limitations: No Limitations Description of Symptoms (Recalled from ER Triage Doc. by RN): Sudden onset of nausea, vomiting and diarrhea. - History of Present Illness MD complaint: nausea, vomiting Onset (ago): hour(s) Description of Vomiting: food contents Description of Diarrhea: water Associated Abdominal Pain: No Severity: mild Severity scale (1-10): 2 Quality: cramping Consistency: intermittent Relieving factors: none Exacerbating factors: none Context: sick contacts Associated symptoms: denies other symptoms - Related Data Home Medications Medication Instructions Recorded Confirmed Aspirin [Aspirin 81mg chewable 81 mg PO DAILY 05/24/17 08/08/18 tab] Levothyroxine Sodium 50 mcg PO DAILY 05/24/17 08/08/18 [Levothyroxine 50mcg (0.05mg) Tab] Metformin HCl [Glucophage 500mg 1,000 mg PO BID 05/24/17 08/08/18 Tablet] Omeprazole Magnesium [Prilosec Otc 20 mg PO BID 05/24/17 08/08/18 20mg Tab] Atorvastatin Calciu
[2019-09-11 14:54] VITALS: BP 129/87; PULSE 89; RESP 18; TEMP 36.7; O2SAT 96
== END 2019-09-11 14:55 | disposition home or self-care (01) ==
PROVIDERS: Emergency Provider Family Medicine; PCP Internal Medicine Adolescent Medicine
DX: K52.9 Noninfective gastroenteritis and colitis, unspecified (principal); I48.91 Unspecified atrial fibrillation; E11.9 Type 2 diabetes mellitus without complications; I10 Essential (primary) hypertension; E78.5 Hyperlipidemia, unspecified; Z88.5 Allergy status to narcotic agent; Z87.891 Personal history of nicotine dependence; R06.02 Shortness of breath
CPT/HCPCS: 71045; 80048; 83880; 84484; 85025; 93005; 96365; 99283

== ENCOUNTER → 2019-10-16 10:41 | Outpatient (POV) | payer MEDICARE, MEDICAID, SELFPAY ==
[2019-10-16 11:17] VITALS: BP 137/89; PULSE 95; RESP 18; TEMP 36.8; O2SAT 99; BMI 37.9
--- NOTE | 2019-10-16 12:53 | HMH.PAINSOAP ---
[facility] Pain Management SOAP Note Subjective:: Patient is a pleasant 79-year-old white female who presents today for consultation regards to her low back and leg pain. Patient has been seen in our office several years ago. She received epidural injections along with medial branch blocks. She had no long-term relief with this. Patient has had surgery in the past for her lumbar spine. Patient currently rates her pain a 9 out of 10 and it is constant. She has difficulty standing or walking. Patient has tried and failed physical therapy, anti-inflammatories, medications. Patient and I had a long conversation in regards to intrathecal therapy. ROS General: no recent weight change, no fever, no sleep disturbances Respiratory: no cough, no shortness of air, no recurring pulmonary infections Cardiovascular/Peripheral Vascular: No chest pain, No palpitations, no edema, no shortness of breath. Gastrointestinal: no new onset incontinence, normal bowel movements reported Genitourinary: no new onset incontinence Musculoskeletal: Back pain, leg pain Psychiatric: normal mood/ affect, Neurological: [denies new onset weakness in extremities], [denies new onset balance issues] Objective:: Physical Exam General: Alert and oriented x3, no acute distress, pleasant and cooperative, [on room air] Lungs: Resps E/U, Symmetrical chest expansion, Eyes: PERRL Musculoskeletal: Flexion and extension of lumbar spine somewhat guarded secondary to pain, deep tendon reflexes normal, strength in upper and lower extremities [5/5], [abnormal gait noted] Neurological: speech clear, nursing teacher equal, no gross sensory deficits Assessment:: Postlaminectomy syndrome, degenerative disc disease lumbar spine with lumbar radiculopathy Plan:: We will send the patient for a psychological evaluation to determine if she is a candidate for intrathecal therapy. We had a long discussion in regards to the trialing process, implantation process and realistic goals. She is on Xarelto. We will have to find out if she can come off of this prior to any kind of trial or implantation. She is currently not on any narcotic medications. She does get ill with oral narcotic medications. I will follow-up with her after this reassess her symptoms at that time she has been instructed to call the office if she has any issues prior to her next appointment. Dr. Galvin has reviewed this note and agrees with this plan of care. This note was dictated using voice recognition software and may contain errors or omissions [facility] History I have reviewed the patient's past medical history: Yes Medical History: Reports:: Atrial Fibrillation, Coronary Artery Disease, Diabetes Mellitus Type 2, Hyperlipidemia, Hypertension Denies:: Diabetes Mellitus Type 1 *Have you ever received a pneumonia vaccine?: Yes *Have you received a flu vaccine this season?: Yes Other Medical History: Reports: Cataracts, Hypothyroidism, Thyroid Disease Other Surgeries: Yes: Cardiac Catheterization (stents), Coronary Stent - *Social History Smoking Status: Former smoker Alcohol Intake: never Substance Use Type: denies use *Occupational Status:: other Housing: house *Travel in the last 8 weeks: None Family Hx:: Coronary Artery Disease
== END ==
PROVIDERS: PCP Internal Medicine Adolescent Medicine; Visit Provider Clinical Nurse Specialist Family Health
DX: M96.1 Postlaminectomy syndrome, not elsewhere classified (principal); M51.16 Intervertebral disc disorders with radiculopathy, lumbar region
CPT/HCPCS: 99212

== ENCOUNTER 2020-07-16 11:30 | Outpatient (CLI) | payer MEDICARE, MEDICAID, SELFPAY ==
[2020-07-16 11:43] VITALS: BMI 34.3
[2020-07-16 11:55] VITALS: BP 133/80; PULSE 97; RESP 18; TEMP 35.9; O2SAT 97
[2020-07-16 12:01] LABS: Basophils % 0.2 % (0.1-2.0); Eosinophils # 0.1 K/mm3 (0.0-0.4); Eosinophils % 0.6 % (0.1-12.0); Hematocrit 37.7 % (37.0-47.0); Hemoglobin 11.6 g/dL (12.2-16.2); Lymphocytes # 1.1 K/mm3 (0.7-4.5); Mean Corpuscular HGB Conc 30.8 g/dL (31.8-35.4); Mean Corpuscular Hemoglobin 25.7 pg (27.0-31.2); Mean Corpuscular Volume 83.4 fl (81-99); Mean Platelet Volume 10.4 fl (7.4-10.4); Monocytes # 0.6 K/mm3 (0.1-1.0); Monocytes % 4.2 % (1.7-9.3); Neutrophils # 12.2 K/mm3 (1.8-7.8); Platelet Count 187 K/mm3 (142-424); Red Blood Count 4.52 M/mm3 (4.20-5.40); Red Cell Distribution Width 15.6 % (11.5-17.5)
[2020-07-16 12:04] LABS: MANUAL DIFFERENTIAL MANUAL DIFFERENTIAL (MANUAL DIFF)
[2020-07-16 12:05] LABS: Chloride 97 mmol/L (98-107); Sodium 133 mmol/L (136-145)
[2020-07-16 12:06] LABS: Potassium 5.2 mmoL/L (3.5-5.1)
[2020-07-16 12:08] LABS: Alanine Aminotransferase 22 U/L (12-78); Albumin Level 3.8 g/dl (3.5-5.0); Albumin/Globulin Ratio 1.3 (1.1-1.8); Alkaline Phosphatase 91 U/L (38-126); Anion Gap 14.2 mEq/L (5-15); Aspartate Amino Transferase 23 U/L (14-36); Bilirubin,Total 0.8 mg/dl (0.2-1.3); Blood Urea Nitrogen 46 mg/dl (7-17); Carbon Dioxide 27 mmol/L (22.0-30.0); Creatinine Clearance Estimated 28 mL/min (50-200); Estimated Glomerular Filt Rate 21 ml/min (>60); GFR (African American) 26 ML/MIN (>60); Globulin 2.9 g/dL (1.3-3.2); Glucose 393 mg/dl (74-100); Lactic Acid 1.9 mmol/L (0.7-2.1); Total Protein,Serum 6.7 g/dl (6.3-8.2)
[2020-07-16 12:28] LABS: Eosinophils % 2 % (0-3); Lymphocytes % 7 % (10-50); Monocytes % 3 % (2-9); Neutrophils % 88 % (42-76); Total Cells Counted 100
[2020-07-16 12:29] LABS: Hypochromasia 1+
[2020-07-16 12:30] LABS: Platelet Estimate Normal
[2020-07-16 13:05] VITALS: BP 121/74; PULSE 86; RESP 18
[2020-07-16 13:26] LABS: Microscopic, Urine URINE MICROSCOPIC (MICROSCOPIC)
[2020-07-16 13:28] LABS: Appearance,Urine CLEAR (Clear); Blood, Urine Negative (Negative); Color,Urine YELLOW (Yellow); Glucose,Urine (UA) 3+ (Negative); Ketones,Urine TRACE (Negative); Leukocyte Esterase,Urine Negative (Negative); Nitrate,Urine Negative (Negative); Protein,Urine Negative (Negative); Urobilinogen,Urine 0.2 EU/dl (0.2)
[2020-07-16 13:43] LABS: Bilirubin,Urine 1+ (Negative)
[2020-07-16 13:58] LABS: RBC,Urine Occasional #/hpf (0-3)
== END 2020-07-16 13:05 | disposition home or self-care (01) ==
LOC: INF 11:40
PROVIDERS: PCP Internal Medicine Adolescent Medicine; Visit Provider Internal Medicine Adolescent Medicine
DX: E86.0 Dehydration (principal); R10.9 Unspecified abdominal pain; R11.0 Nausea
CPT/HCPCS: 80053; 81001; 83605; 85007; 85025; 87086; 87088; 87186; 96360; 96375; J2405

== ENCOUNTER 2020-07-26 17:07 | Emergency (ER) | payer MEDICARE, MEDICAID, SELFPAY ==
--- NOTE | 2020-07-26 17:18 | HMH.EDGENADL ---
ED Disposition Clinical Impression: Hyperglycemia, Dehydration Disposition: Home, Self-Care Condition on Discharge: Good Instructions: DI for Hyperglycemia -- Adult Additional Instructions: Cut your prednisone dose in half, avoid starchy or sugary foods. Check your fingerstick several times this evening before going to bed. Follow-up with primary care in the next 2 to 3 days for reevaluation. Return to the emergency department for any acute new concerns. Referrals: Adriano Aguilar MD [Primary Care Provider] - 3 days - Critical Care Critical Care Time: No Attestation: On 07/26/20, the high probability of a clinically significant, sudden or life threatening deterioration of the following system(s) required my full and direct attention, intervention and personal management. The time I documented below is in addition to time spent performing reported procedures but includes the following listed in this critical care notation. Medical Decision Making - Medical Records Medical records reviewed: Yes: I reviewed the patient's medical records. - Haseeb Inquiry Pt receiving controlled substance: No Vital Signs: 07/26/20 17:25 Temperature 98.6 F Temperature Source Oral Pulse Rate [Radial] 95 H Respiratory Rate 22 Blood Pressure [Right Arm] 117/71 Blood Pressure Mean [Right Arm] 86 Blood Pressure Position [Right Arm] Sitting 02 Sat by Pulse Oximetry 98 Oxygen Delivery Method Room Air - Lab Data Lab results reviewed: Yes: I reviewed the patient's lab results. Lab Results 07/26/20 17:30: WBC 11.4 H, RBC 4.45, Hgb 11.8 L, Hct 38.1, MCV 85.6, MCH 26.4 L, MCHC 30.9 L, RDW 16.1, Plt Count 205, MPV 10.0, Neut % (Auto) 88.6 H, Lymph % (Auto) 7.1 L, [place] % (Auto) 3.7, Eos % (Auto) 0.3, Baso % (Auto) 0.2, Neut # (Auto) 10.1 H, Lymph # (Auto) 0.8, [place] # (Auto) 0.4, Eos # (Auto) 0.0, Baso # (Auto) 0.0, Total Counted 100, Neutrophils % (Manual) 88 H, Lymphocytes % (Manual) 8 L, Monocytes % (Manual) 4, Platelet Estimate Normal, Hypochromasia 1+ 07/26/20 17:30: Sodium 127 L, Potassium 5.8 H, Chloride 92 L, Carbon Dioxide 22, Anion Gap 18.8 H, BUN 58 H, Creatinine 2.10 H, Estimated Creat Clear 30, Estimated GFR 23 L, Est GFR ( Amer) 27 L, Glucose 514 H*, Calcium 8.7, Total Bilirubin 0.7, AST 37 H, ALT 31, Alkaline Phosphatase 65, Total Protein 6.1 L, Albumin 3.7, Globulin 2.4, Albumin/Globulin Ratio 1.5, Lipase 291 07/26/20 17:41: POC Glucose 509 H* 07/26/20 18:10: Urine Color Yellow, Urine Appearance Clear, Urine pH 5.5, Ur Specific [place] 1.015, Urine Protein Negative, Urine Glucose (UA) 3+, Urine Ketones Negative, Urine Blood Negative, Urine Nitrate Negative, Urine Bilirubin Negative, Urine Urobilinogen 0.2, Ur Leukocyte Esterase Negative, Urine RBC None, Urine WBC Occasional, Ur Squamous Epith Cells 3-5, Urine Bacteria None 07/26/20 18:57: POC Glucose 322 H* Result diagrams: 07/26/20 17:30 07/26/20 17:30 Orders (Tests/Meds): ED MEDICATIONS Generic Name Dose Route Start Last Admin Trade Name Freq PRN Reason Stop Dose Admin Sodium Chloride 1,000 mls @ 999 mls/hr 07/26/20 17:45 07/26/20 18:11 Sod Chlor 0.9% 1000ml Bag IV 07/26/20 18:45 999 mls/hr .Q1H1M JUSTIN Administration Sodium Chloride 1,000 mls @ 999 mls/hr 07/26/20 18:30 07/26/20 19:00 Sod Chlor 0.9% 1000ml Bag IV 07/26/20 19:30 999 mls/hr .Q1H1M JUSTIN Administration Discontinued Medications Generic Name Dose Route Start Last Admin Trade Name Freq PRN Reason Stop Dose Admin Insulin Human Regular 10 unit 07/26/20 17:43 07/26/20 18:10 Insulin Human Regular 100 Units/Ml 10ml Vial IVP 07/26/20 17:44 10 unit ONCE ONE Administration Medical Decision Narrative: Patient with a fingerstick of 509, likely the source of her weakness increasing over the last week since she has not checked her blood sugar in a week. This is made worse by her UTI and prednisone use. Given fluids and insulin here. Patient is feeling better with t
[2020-07-26 17:25] VITALS: BP 117/71; PULSE 95; RESP 22; TEMP 37; O2SAT 98; BMI 34.3
[2020-07-26 17:47] LABS: Basophils % 0.2 % (0.1-2.0); Eosinophils % 0.3 % (0.1-12.0); Hematocrit 38.1 % (37.0-47.0); Hemoglobin 11.8 g/dL (12.2-16.2); Lymphocytes # 0.8 K/mm3 (0.7-4.5); Lymphocytes % 7.1 % (10-50); Mean Corpuscular HGB Conc 30.9 g/dL (31.8-35.4); Mean Corpuscular Hemoglobin 26.4 pg (27.0-31.2); Mean Corpuscular Volume 85.6 fl (81-99); Monocytes # 0.4 K/mm3 (0.1-1.0); Monocytes % 3.7 % (1.7-9.3); Neutrophils # 10.1 K/mm3 (1.8-7.8); Neutrophils % 88.6 % (37.0-80.0); Platelet Count 205 K/mm3 (142-424); Red Blood Count 4.45 M/mm3 (4.20-5.40); Red Cell Distribution Width 16.1 % (11.5-17.5); White Blood Count 11.4 K/mm3 (4.8-10.8)
[2020-07-26 17:49] LABS: POC Glucose,Bedside 509 (70-110)
[2020-07-26 17:50] LABS: MANUAL DIFFERENTIAL MANUAL DIFFERENTIAL (MANUAL DIFF)
[2020-07-26 18:00] LABS: Alanine Aminotransferase 31 U/L (12-78); Albumin Level 3.7 g/dl (3.5-5.0); Albumin/Globulin Ratio 1.5 (1.1-1.8); Alkaline Phosphatase 65 U/L (38-126); Anion Gap 18.8 mEq/L (5-15); Aspartate Amino Transferase 37 U/L (14-36); Bilirubin,Total 0.7 mg/dl (0.2-1.3); Blood Urea Nitrogen 58 mg/dl (7-17); Calcium 8.7 mg/dl (8.4-10.2); Carbon Dioxide 22 mmol/L (22.0-30.0); Chloride 92 mmol/L (98-107); Creatinine Clearance Estimated 30 mL/min (50-200); Estimated Glomerular Filt Rate 23 ml/min (>60); GFR (African American) 27 ML/MIN (>60); Globulin 2.4 g/dL (1.3-3.2); Lipase 291 U/L (23-300); Potassium 5.8 mmoL/L (3.5-5.1); Sodium 127 mmol/L (136-145); Total Protein,Serum 6.1 g/dl (6.3-8.2)
[2020-07-26 18:02] LABS: Glucose 514 mg/dl (74-100)
[2020-07-26 18:07] LABS: Hypochromasia 1+; Lymphocytes % 8 % (10-50); Monocytes % 4 % (2-9); Neutrophils % 88 % (42-76); Platelet Estimate Normal; Total Cells Counted 100
[2020-07-26 18:12] LABS: Microscopic, Urine URINE MICROSCOPIC (MICROSCOPIC)
[2020-07-26 18:14] LABS: Appearance,Urine CLEAR (Clear); Bilirubin,Urine Negative (Negative); Blood, Urine Negative (Negative); Color,Urine YELLOW (Yellow); Glucose,Urine (UA) 3+ (Negative); Ketones,Urine Negative (Negative); Leukocyte Esterase,Urine Negative (Negative); Nitrate,Urine Negative (Negative); PH,Urine 5.5 (5.0-8.5); Protein,Urine Negative (Negative); Specific Gravity, Urine 1.015 (1.005-1.030); Urobilinogen,Urine 0.2 EU/dl (0.2)
[2020-07-26 18:23] LABS: WBC,Urine Occasional #/hpf (0-3)
[2020-07-26 19:06] LABS: POC Glucose,Bedside 322 (70-110)
[2020-07-26 19:30] VITALS: BP 131/69; PULSE 91; RESP 15; O2SAT 99
[2020-07-26 19:40] LABS: POC Glucose,Bedside 313 (70-110)
[2020-07-26 19:55] VITALS: BP 131/77; PULSE 87; RESP 18; TEMP 36.7; O2SAT 98
== END 2020-07-26 19:58 | disposition home or self-care (01) ==
PROVIDERS: Emergency Provider Emergency Medicine; PCP Internal Medicine Adolescent Medicine
DX: E86.0 Dehydration (principal); N30.00 Acute cystitis without hematuria; E11.65 Type 2 diabetes mellitus with hyperglycemia; I10 Essential (primary) hypertension; E78.5 Hyperlipidemia, unspecified; I48.91 Unspecified atrial fibrillation; I25.10 Atherosclerotic heart disease of native coronary artery without angina pectoris; Z88.5 Allergy status to narcotic agent; Z87.891 Personal history of nicotine dependence
CPT/HCPCS: 80053; 81001; 82962; 83690; 85007; 85025; 96365; 96366; 96375; 99282

== ENCOUNTER 2020-07-28 18:36 | Observation (INO) | payer MEDICARE, MEDICAID, SELFPAY ==
[2020-07-28 18:45] VITALS: BP 141/78; PULSE 98; RESP 19; TEMP 37.1; O2SAT 98; BMI 37.8
--- NOTE | 2020-07-28 19:17 | HMH.EDGENADL ---
ED Disposition Condition on Discharge: Fair - Critical Care Critical Care Time: No <Brant Kennedy - Last Filed: 07/28/20 20:03> <Urbano Steve - Last Filed: 07/28/20 20:58> Clinical Impression: Weakness, Vesicle of skin, Hypothyroidism (acquired), Renal insufficiency Diabetes mellitus Qualifiers: Diabetes mellitus type: type 2 Diabetes mellitus terminal carman insulin use: unspecified terminal carman insulin use status Diabetes mellitus complication status: with other specified complication Qualified Code(s): E11.69 - Type 2 diabetes mellitus with other specified complication Disposition: Admitted as Observation Instructions: DI for Skin Abscess Referrals: Adriano Aguilar MD [Primary Care Provider] - Attestation: On 07/28/20, the high probability of a clinically significant, sudden or life threatening deterioration of the following system(s) required my full and direct attention, intervention and personal management. The time I documented below is in addition to time spent performing reported procedures but includes the following listed in this critical care notation. Medical Decision Making - Medical Records Medical records reviewed: Yes: I reviewed the patient's medical records. MR Comment: Reviewed department visit from 07/26/2020. Elevated blood sugar greater than 500 improved to 313 with treatment by the time of discharge. Urine analysis unremarkable. Reviewed recent urine culture result 07/16/2020 which showed E. coli and Klebsiella pneumonia. Patient has been treated with Cipro and then Levaquin, sensitive to both. - Hase[place] Inquiry Pt receiving controlled substance: No - Radiology Data #1 Image(s): Chest, Foot/Toes Image Reviewed: Yes I have reviewed radiologist's interpretation <Brant Kennedy - Last Filed: 07/28/20 20:03> - Lab Data Lab results reviewed: Yes: I reviewed the patient's lab results. Result diagrams: 07/28/20 19:30 07/28/20 19:30 <Urbano Steve - Last Filed: 07/28/20 20:58> Vital Signs: 07/28/20 18:45 Temperature 98.7 F Temperature Source Oral Pulse Rate [Right Brachial] 98 H Respiratory Rate 19 Blood Pressure [Right Arm] 141/78 H Blood Pressure Mean [Right Arm] 99 Blood Pressure Source [Right Arm] Automatic Cuff 02 Sat by Pulse Oximetry 98 Oxygen Delivery Method Room Air - Lab Data Lab Results 07/28/20 19:25: Lactate 2.3 H 07/28/20 19:25: C-Reactive Protein 0.5, Procalcitonin 0.078 07/28/20 19:30: WBC 8.1 D, RBC 4.64, Hgb 12.1 L, Hct 38.4, MCV 82.9, MCH 26.0 L, MCHC 31.4 L, RDW 16.1, Plt Count 170, MPV 9.5, Neut % (Auto) 85.0 H, Lymph % (Auto) 9.6 L, Rice % (Auto) 5.0, Eos % (Auto) 0.3, Baso % (Auto) 0.1, Neut # (Auto) 6.8, Lymph # (Auto) 0.8, Rice # (Auto) 0.4, Eos # (Auto) 0.0, Baso # (Auto) 0.0, Total Counted 100, Neutrophils % (Manual) 91 H, Lymphocytes % (Manual) 7 L, Monocytes % (Manual) 1 L, Basophils % (Manual) 1.0, Platelet Estimate Normal, Hypochromasia 1+, Poikilocytosis 1+, Anisocytosis 1+, ESR 15 07/28/20 19:30: Sodium 131 L, Potassium 5.0, Chloride 98, Carbon Dioxide 26, Anion Gap 12.0, BUN 50 H, Creatinine 1.90 H, Estimated Creat Clear 36, Estimated GFR 25 L, Est GFR ( Amer) 31 L, Glucose 362 H, Calcium 8.7, Total Bilirubin 0.7, AST 38 H, ALT 29, Alkaline Phosphatase 69, Total Creatine Kinase 49, CK-MB (CK-2) 1.4, CK-MB (CK-2) Rel Index 2.9, Troponin I 0.05 H, Total Protein 6.2 L, Albumin 3.8, Globulin 2.4, Albumin/Globulin Ratio 1.6 07/28/20 20:29: Urine Color Yellow, Urine Appearance Clear, Urine pH 6.0, Ur Specific [place] 1.020, Urine Protein Negative, Urine Glucose (UA) 3+, Urine Ketones Negative, Urine Blood Negative, Urine Nitrate Negative, Urine Bilirubin Negative, Urine Urobilinogen 0.2, Ur Leukocyte Esterase Negative Orders (Tests/Meds): ED MEDICATIONS Generic Name Dose Route Start Last Admin Trade Name Freq PRN Reason Stop Dose Admin Sodium Chloride 1,000 mls @ 999 mls/hr 07/28/20 20:45 07/28/20 20:47 Sod Chlor 0.9% 100
--- NOTE | 2020-07-28 19:18 | XR_ITS ---
PROCEDURE: XR FOOT RT MIN 3V CLINICAL INDICATION: r/o osteo, large blister on heel COMPARISON: No exams were available for comparison FINDINGS: No fracture or dislocation. No lytic or blastic change. There is normal mineralization. There are mild hammertoe deformities of the 2nd through 5th toes. The plantar arch is normal. There is a small spur of the calcaneus at the insertion of the plantar tendon. IMPRESSION: Small calcaneal spur, there are no findings to suggest osteomyelitis. Dictated by: Dr. Niko Avelar MD 07/28/2020 19:46 Dr. Niko Avelar MD in [place] 07/28/2020 19:46
--- NOTE | 2020-07-28 19:22 | ECG_ITS ---
APPROVED REPORT Exam: Resting ECG HR:94 bpm ECG Measurements Heart Rate 94 AXES QRSd 78 QRS 62 QT 364 T 51 QTc 455 Conclusion Atrial fibrillation Abnormal ECG Electronically signed by : Adriano Aguilar, 07/29/2020 20:55:28
--- NOTE | 2020-07-28 19:27 | XR_ITS ---
PROCEDURE: XR CHEST PORTABLE CLINICAL HISTORY: weakness COMPARISON: CR CXR2 XR chest AP from 06/06/2017 CR CXR1VP XR chest portable from 07/19/2018 CR XR CHEST PORTABLE from 09/11/2019 FINDINGS: The patient is rotated to the left slightly. There is mild generalized cardiomegaly with left ventricular prominence. The left ventricle somewhat obscures evaluation of the left lung base and there may be a small pleural effusion or pleural scarring present. The left upper lung field and right lung iwlson are clear. There are mild degenerate changes lower thoracic spine. IMPRESSION: Cardiomegaly, possible left basilar and or costophrenic angle scarring or small pleural effusion and I somewhat favor the former. Dictated by: Dr. Niko Avelar MD 07/28/2020 19:44 Dr. Niko Avelar MD in [place] 07/28/2020 19:44
--- NOTE | 2020-07-28 19:28 | PC.NURSE ---
rad at bedside
[2020-07-28 19:57] LABS: Basophils % 0.1 % (0.1-2.0); Eosinophils % 0.3 % (0.1-12.0); Hematocrit 38.4 % (37.0-47.0); Hemoglobin 12.1 g/dL (12.2-16.2); Lymphocytes # 0.8 K/mm3 (0.7-4.5); Lymphocytes % 9.6 % (10-50); Mean Corpuscular HGB Conc 31.4 g/dL (31.8-35.4); Mean Corpuscular Volume 82.9 fl (81-99); Mean Platelet Volume 9.5 fl (7.4-10.4); Monocytes # 0.4 K/mm3 (0.1-1.0); Neutrophils # 6.8 K/mm3 (1.8-7.8); Platelet Count 170 K/mm3 (142-424); Red Blood Count 4.64 M/mm3 (4.20-5.40); Red Cell Distribution Width 16.1 % (11.5-17.5); White Blood Count 8.1 K/mm3 (4.8-10.8)
[2020-07-28 20:06] LABS: MANUAL DIFFERENTIAL MANUAL DIFFERENTIAL (MANUAL DIFF)
[2020-07-28 20:10] LABS: Chloride 98 mmol/L (98-107)
[2020-07-28 20:11] LABS: Sodium 131 mmol/L (136-145)
[2020-07-28 20:13] LABS: Alanine Aminotransferase 29 U/L (12-78); Alkaline Phosphatase 69 U/L (38-126); Aspartate Amino Transferase 38 U/L (14-36); Bilirubin,Total 0.7 mg/dl (0.2-1.3); Blood Urea Nitrogen 50 mg/dl (7-17); Carbon Dioxide 26 mmol/L (22.0-30.0); Creatinine Clearance Estimated 36 mL/min (50-200); Estimated Glomerular Filt Rate 25 ml/min (>60); GFR (African American) 31 ML/MIN (>60)
[2020-07-28 20:14] LABS: Albumin Level 3.8 g/dl (3.5-5.0); Albumin/Globulin Ratio 1.6 (1.1-1.8); Calcium 8.7 mg/dl (8.4-10.2); Creatine Kinase 49 U/L (30-135); Globulin 2.4 g/dL (1.3-3.2); Glucose 362 mg/dl (74-100); Total Protein,Serum 6.2 g/dl (6.3-8.2)
[2020-07-28 20:17] LABS: Lymphocytes % 7 % (10-50); Monocytes % 1 % (2-9); Neutrophils % 91 % (42-76); Total Cells Counted 100
[2020-07-28 20:18] LABS: Anisocytosis 1+; Hypochromasia 1+; Platelet Estimate Normal; Poikilocytosis 1+
[2020-07-28 20:19] LABS: C-Reactive Protein 0.5 mg/L (0-4)
[2020-07-28 20:23] LABS: CKMB Relative Index 2.9 U/L (0-4.0); Creatine Kinase MB 1.4 ng/ml (0.0-2.03)
[2020-07-28 20:23] LABS: Lactic Acid 2.3 mmol/L (0.7-2.1)
[2020-07-28 20:26] LABS: Troponin I 0.05 ng/ml (0.00-0.034)
[2020-07-28 20:29] LABS: Erythrocyte Sedimentation Rate 15 mm/hr (0-30)
[2020-07-28 20:32] LABS: Procalcitonin 0.078 ng/mL (0.0-2.0)
[2020-07-28 20:34] LABS: Microscopic, Urine URINE MICROSCOPIC (MICROSCOPIC)
[2020-07-28 20:38] LABS: Appearance,Urine CLEAR (Clear); Bilirubin,Urine Negative (Negative); Blood, Urine Negative (Negative); Color,Urine YELLOW (Yellow); Glucose,Urine (UA) 3+ (Negative); Ketones,Urine Negative (Negative); Leukocyte Esterase,Urine Negative (Negative); Nitrate,Urine Negative (Negative); Protein,Urine Negative (Negative); Urobilinogen,Urine 0.2 EU/dl (0.2)
[2020-07-28 20:47] LABS: Thyroid Stimulating Hormone 3.35 uIU/mL (0.465-4.68)
--- NOTE | 2020-07-28 20:57 | PC.NURSE ---
Alexispharmacist states Vanc 2gm IV one time dose
--- NOTE | 2020-07-28 21:03 | PC.NURSE ---
kim rodriges for bed assignment.
[2020-07-28 21:11] LABS: Amorphous Sediment,Urine Trace /lpf; Squamous Epithelial Cell,Urine Occasional #/hpf (0-5)
[2020-07-28 21:18] LABS: NT Pro Brain Natriuretic Pep. 2480 pg/mL (0-450)
[2020-07-28 21:22] LABS: Hemoglobin A1C 13.5 % (4.0-6.0)
[2020-07-28 21:33] LABS: T4 (Thyroxine) 7.4 ug/dl (5.53-11.0)
--- NOTE | 2020-07-28 22:40 | PC.NURSE ---
called to patient's room to assist with bedpan for voiding. patient upset due to visitor restriction. daughter upset due to visitor restriction. contacted in house counsel to discuss med/surg visitor policy with visitors.
--- NOTE | 2020-07-28 22:57 | PC.NURSE ---
family at bedside. supervisor vat house at bedside. family calling [place] to determine whether the visitor policy allows someone to stay with patient the whole time. if so they will take patient and leave AMA rather than admit patient.
[2020-07-28 23:10] LABS: Reflex Lactic Add Lactic Reflex
[2020-07-28 23:24] VITALS: BP 124/83; PULSE 71; RESP 17; TEMP 36.7; O2SAT 98
[2020-07-28 23:26] VITALS: BP 138/88; PULSE 94; RESP 18; TEMP 36.7; O2SAT 98; BMI 31.3
--- NOTE | 2020-07-28 23:26 | PC.NURSE ---
PT ARRIVED TO FLOOR VIA STRETCHER W/STAFF FROM ED AT [id number]
[2020-07-28 23:39] LABS: Lactic Acid Follow Up (RFLX 1) 1.6 mmol/L (0.7-2.1)
[2020-07-29 00:41] LABS: POC Glucose,Bedside 279 (70-110)
--- NOTE | 2020-07-29 01:30 | PC.WOUNDNOTE ---
Wound Location: (R) heel Length: Width: Depth: Undermining Y/N: Tunneling cm: Granulation %: Slough/necrotic tissue %: Inflammation/swelling Y/N: Pain and/or tenderness Y/N: Exudate: Serosanguinous Sanguinous Serosanguinous Seropurulent Purulent Color: [place]/purple. Debrided in ER by Clear Marita Cloudy/milky [place] Red Green Yellow Brown Mandel Blue Consistency: Thick Thin Amount: None Scant Small Moderate Large Odor Y/N: N
[2020-07-29 03:57] VITALS: BP 115/68; PULSE 90; RESP 16; TEMP 36.7; O2SAT 97
[2020-07-29 05:33] LABS: POC Glucose,Bedside 155 (70-110)
--- NOTE | 2020-07-29 05:47 | PC.NURSE ---
No acute changes since arrival to floor. Pt is A&O x4. Has c/o discomfort to (R) foot and chronic back pain. FSBS 155 this AM. Pt is NPO for consult this AM. VS are currently stable. Lungs are CTA. BSx4. DSG to (R) foot in place. See wound note for picture. NS is currently infusing @ 50 ml/hr . Call light within reach. Will continue to monitor.
[2020-07-29 05:59] VITALS: BMI 31.4
--- NOTE | 2020-07-29 07:17 | HMH.PHAVTE ---
[facility] Pharmacy VTE Monitoring - Patient Demographics Admission date: 07/28/20 Report Date: 07/29/20 Time: 07:17 Allergies/Adverse Reactions: Patient Allergies codeine [CODEINE] Allergy (Unknown, Verified 08/08/18 13:08) Height: 1.63 m Weight: 83.603 kg Patient Problems: Current Active Problems Diabetes mellitus (Chronic) Weakness (Acute) Vesicle of skin (Acute) Hypothyroidism (acquired) (Acute) Renal insufficiency (Acute) - VTE Risk Labs: VTE Related Lab Results Hgb 12.1 g/dL (12.2-16.2) L 07/28/20 19:30 Hct 38.4 % (37.0-47.0) 07/28/20 19:30 Plt Count 170 K/mm3 (142-424) 07/28/20 19:30 BUN 50 mg/dl (7-17) H 07/28/20 19:30 Creatinine 1.90 mg/dl (0.52-1.04) H 07/28/20 19:30 Estimated Creat Clear 36 mL/min (50-200) 07/28/20 19:30 VTE Risk Level: Moderate Risk - Prophylaxis VTE Prophylaxis Ordered?: Yes Types of VTE Prophylaxis: TEDS Knee High, Pharmacological Location of Applied Device: Bilateral Lower Extremeties Pharmacologic Type: Other (Xarelto)
[2020-07-29 07:18] LABS: Basophils % 0.1 % (0.1-2.0); Eosinophils # 0.1 K/mm3 (0.0-0.4); Eosinophils % 0.7 % (0.1-12.0); Lymphocytes % 14.6 % (10-50); Mean Corpuscular HGB Conc 31.9 g/dL (31.8-35.4); Mean Corpuscular Hemoglobin 26.1 pg (27.0-31.2); Mean Corpuscular Volume 81.7 fl (81-99); Mean Platelet Volume 9.4 fl (7.4-10.4); Monocytes # 0.4 K/mm3 (0.1-1.0); Monocytes % 6.5 % (1.7-9.3); Neutrophils # 5.2 K/mm3 (1.8-7.8); Neutrophils % 78.1 % (37.0-80.0); Platelet Count 139 K/mm3 (142-424); Red Blood Count 3.92 M/mm3 (4.20-5.40); Red Cell Distribution Width 16.3 % (11.5-17.5); White Blood Count 6.7 K/mm3 (4.8-10.8)
[2020-07-29 07:27] LABS: Anion Gap 7.2 mEq/L (5-15); Blood Urea Nitrogen 43 mg/dl (7-17); Calcium 7.9 mg/dl (8.4-10.2); Carbon Dioxide 26 mmol/L (22.0-30.0); Chloride 106 mmol/L (98-107); Creatinine Clearance Estimated 41 mL/min (50-200); Estimated Glomerular Filt Rate 36 ml/min (>60); GFR (African American) 44 ML/MIN (>60); Glucose 154 mg/dl (74-100); Magnesium 1.7 mg/dl (1.6-2.3); Potassium 4.2 mmoL/L (3.5-5.1); Sodium 135 mmol/L (136-145)
[2020-07-29 07:36] LABS: Hemoglobin 10.2 g/dL (12.2-16.2)
[2020-07-29 08:00] VITALS: BP 134/67; PULSE 83; RESP 20; TEMP 36.5; O2SAT 97
--- NOTE | 2020-07-29 08:10 | CA_ITS ---
APPROVED REPORT EXAM: Comprehensive 2D, Doppler, and color-flow Echocardiogram Quantitative Consultant: Tiffanie Keller, RCS, RVS Ht: 5 ft 4 in Wt: 184lbs BSA: 1.89 HR: 84 bpm BP: 115/68 mmHg Rhythm: Atrial Fibrillation Indications: Atrial Fibrillation, Diabetes, Weakness, dehydration, Hgb=12 2D Dimensions Aortic Root 3.01 cm LA Volume 94.90 mL Left Atrium 3.71 cm LA Volume Index 50.20 mL/m2 (M/F) 16-34 LVOT 1.77 cm (M/F) 1.5-2.5 Ascending Aorta 3.26 cm M-Mode Dimensions RVDd 3.13 cm (0.9-2.6) LVDd 4.23 cm (3.5-5.7) LVDs 2.40 cm (3.5-5.7) IVSd 0.88 cm (0.6-1.1) PWd 0.99 cm (0.6-1.1) EF (Teich) 74.70% EPSs 0.98 cm FS 43.30% EDV (Teich) 79.90 mL TAPSE 1.00 (<1.7) ESV (Teich) 20.20 mL LV Diastology E Decel Time 217.00 (160-240 msec) E/A Ratio 2.04 MED E' 6.70 (< 7 cm/sec) MED A' 2.50 cm/s E'/MED E' Ratio 17.21 (>14) LAT E' 5.70 (<10 cm/sec) LAT A' 6.20 cm/s E/LAT E' Ratio 20.23 (>14) Pulm Vein s 71.00 cm/sec Aortic Valve LVOT Max 95.00 (70-110 cm/s) LVOT VTI 17.19 cm AoV Peak Victor Manuel. 208.00 (50-130 cm/s) AI PHT 471.00 ms AO Peak GR. 17.30 mmHg AO Mean GR. 7.80 (<5 mmHg) AO VTI 35.47 (18-25 cm) LUCERO (VTI) 1.19 (2.5-4.5 cm2) Mitral Valve MV E Max Victor Manuel. 115.00 (40-130 cm/s) MV A Velocity 56.00 (40-130 cm/s) E/A Ratio 2.04 MV Decel. Time 217.00 (160-240 ms) MV PHT 63.00 ms Pulmonary Valve PV Peak Velocity 75.00 (50-150 cm/s) Tricuspid Valve TR P. Velocity 293.00 cm/s RAP Estimate 10.00 mmHg RVSP 44.30 mmHg Left Ventricle Left atrium is moderately enlarged, left ventricle is normal size, mild concentric left ventricular hypertrophy, visually estimated ejection fraction 55% with no regional wall motion abnormality. Diastolic parameters are inconclusive. Right Ventricle Right atrium and right ventricular qualitatively normal size and function. Aortic Valve Aortic valve is thickened and calcified without aortic stenosis, there is mild aortic insufficiency. Mitral Valve Mitral valve leaflets are minimally thickened there is mild mitral regurgitation. Tricuspid Valve Tricuspid valve grossly normal, there is mild tricuspid regurgitation, calculated right ventricular systolic pressure is 44 mmHg. Pulmonic Valve Pulmonic valve is poorly visualized. Great Vessels Aortic root is normal size. Pericardium No significant pericardial effusion noted. Conclusion 1. Moderately enlarged left atrium, normal left ventricular size, mild concentric left ventricular hypertrophy, visually estimated ejection fraction 55% with no regional wall motion abnormality, diastolic parameters are inconclusive. 2. Mild aortic, mild mitral and tricuspid regurgitation. Calculated right ventricular systolic pressure is 44 mmHg. 3. No significant pericardial effusion noted. Electronically signed by : Stefano Gudino, 07/29/2020 20:17:20
--- NOTE | 2020-07-29 08:10 | HMH.ORTHOCON ---
*Admission Date: 07/28/20 <Anny Yousif 07/29/20 08:31> *Reason for consult:: Right Heel DM ulcer <Anny Yousif 07/29/20 08:31> *History of present illness: Ms. Tenorio is 80-year-old female that presents with a diabetic ulcer to the right heel. Patient states it has been there for a few days could be a week when she noticed her heel hurting and saw that there was this blister type ulcer to the right medial heel. Podiatry was consulted with the patient this morning. Patient has been n.p.o. for the consult. Patient's x-rays was negative for any bone infection so there will be no surgical procedure necessary at this time. We will clean the area with Betadine and redressed the area as it appears to be very superficial. No debriding was done at the bedside. Measurements was 4.2 x 5.0 x 0 cm. <Anny Yousif 07/29/20 08:31> [facility] History I have reviewed the patient's past medical history: Yes <Anny Yousif 07/29/20 08:31> Medical History: Reports:: Arrhythmia, Atrial Fibrillation, Cancer (skin), Congestive Heart Failure, Coronary Artery Disease, Diabetes Mellitus Type 2, Hyperlipidemia, Hypertension Denies:: Diabetes Mellitus Type 1 <Anny Yousif 07/29/20 08:31> *Have you ever received a pneumonia vaccine?: Yes <Anny Yousif 07/29/20 08:31> *Have you received a flu vaccine this season?: Yes <Anny Yousif 07/29/20 08:31> Other Medical History: Reports: Cataracts, Hypothyroidism, Thyroid Disease <Anny Yousif 07/29/20 08:31> Other Surgeries: Yes: Cardiac Catheterization (stents), Coronary Stent <Anny Yousif 07/29/20 08:31> - *Social History Smoking Status: Former smoker <Anny Yousif 07/29/20 08:31> Tobacco Type: cigarettes <Anny Yousif 07/29/20 08:31> Alcohol Intake: never <Anny Yousif 07/29/20 08:31> Substance Use Type: denies use <Anny Yousif 07/29/20 08:31> *Occupational Status:: retired <Anny Yousif 07/29/20 08:31> Housing: house <Anny Yousif 07/29/20 08:31> *Travel in the last 8 weeks: None <Anny Yousif 07/29/20 08:31> Family Hx:: Cancer, Coronary Artery Disease, Diabetes, Heart Attack, Hyperlipidemia, Hypertension, Stroke, Thyroid Disorder, Tuberculosis <Anny Yousif 07/29/20 08:31> Review of Systems - Constitutional Reports weakness, Denies anorexia <Anny Yousif 07/29/20 08:31> - Eyes Denies change in vision <NicaAnny Jean 07/29/20 08:31> - ENT Denies abnormal hearing <Anny Yousif 07/29/20 08:31> - *Cardiovascular Denies chest pain, Denies shortness of breath <Anny Yousif 07/29/20 08:31> - *Respiratory Denies cough, Denies shortness of breath <Anny Yousif 07/29/20 08:31> - *Gastrointestinal Denies abdominal pain <Anny Yousif 07/29/20 08:31> - *Musculoskeletal Reports muscle weakness (Patient was admitted for weakness has had a urinary tract infection.), Reports other (Pain to the right medial heel due to diabetic ulcer) <NicaAnny Jean 07/29/20 08:31> - Integumentary/Breasts Reports dry skin, Reports wounds (Right medial heel ulcer, no drainage noted.) <NicaAnny Jean 07/29/20 08:31> - *Neurologic Reports weakness, Denies confusion <NicaAnny Jean 07/29/20 08:31> - Psychiatric Denies anxiety, Denies confusion <NicaAnny Spencer 07/29/20 08:31> Meds Home Medications Medication Instructions Recorded Confirmed Type Aspirin [Aspirin 81mg chewable 81 mg PO DAILY 05/24/17 07/29/20 History tab] Levothyroxine Sodium 50 mcg PO DAILY 05/24/17 07/28/20 History [Levothyroxine 50mcg (0.05mg) Tab] Omeprazole Magnesium [Prilosec Otc 20 mg PO BID 05/24/17 07/28/20 History 20mg Tab] Atorvastatin Calcium [Lipitor 40mg 40 mg PO HS 07/26/18 07/28/20 History Tab] Ondansetron [Zofran 4mg ODT] 4 mg PO TID PRN 4 Days #15 09/11/19 07/28/20 Rx tab.rapdis Furosemide [Furosemide 40MG tAB*] 20 mg PO DAILY
--- NOTE | 2020-07-29 08:10 | HMH.HP ---
*Admission Date: 07/28/20 *Chief complaint: Weakness and heel ulcer *History of present illness: 80-year-old white female with multiple medical problems including chronic atrial fibrillation, on Xarelto. Type 2 diabetes, chronic gastroparesis and chronic pain disorder-who is intolerant to all pain medications at this point except Tylenol. She was brought to the emergency department last night by her daughters because of weakness and also the sudden appearance of a right medial heel ulcer that they were concerned was infected. She was found to have mild prerenal azotemia, weakness and was admitted to hospital for IV fluids, podiatry evaluation for the ulcer and further diagnostic testing. Of note patient has been treated in the infusion center over the past 10 days with IV fluids because of dehydration and elevated creatinine as well as a urinary tract infection that she is finishing up [facility] for. [facility] History I have reviewed the patient's past medical history: Yes Medical History: Reports:: Arrhythmia, Atrial Fibrillation, Cancer (skin), Congestive Heart Failure, Coronary Artery Disease, Diabetes Mellitus Type 2, Hyperlipidemia, Hypertension Denies:: Diabetes Mellitus Type 1 *Have you ever received a pneumonia vaccine?: Yes *Have you received a flu vaccine this season?: Yes Other Medical History: Reports: Cataracts, Hypothyroidism, Thyroid Disease Other Surgeries: Yes: Cardiac Catheterization (stents), Coronary Stent - *Social History Smoking Status: Former smoker Tobacco Type: cigarettes Alcohol Intake: never Substance Use Type: denies use *Occupational Status:: retired Housing: house *Travel in the last 8 weeks: None Family Hx:: Cancer, Coronary Artery Disease, Diabetes, Heart Attack, Hyperlipidemia, Hypertension, Stroke, Thyroid Disorder, Tuberculosis Review of Systems - Review of Systems Review of systems:: pertinent systems reviewed and negative unless documented below Reports global weakness and her back pain. Denies breathing problems, does not recall trauma to her leg - *Neurologic Reports weakness Meds Home Medications Medication Instructions Recorded Confirmed Type Aspirin [Aspirin 81mg chewable 81 mg PO DAILY 05/24/17 08/08/18 History tab] Levothyroxine Sodium 50 mcg PO DAILY 05/24/17 07/28/20 History [Levothyroxine 50mcg (0.05mg) Tab] Metformin HCl [Glucophage 500mg 1,000 mg PO BID 05/24/17 08/08/18 History Tablet] Omeprazole Magnesium [Prilosec Otc 20 mg PO BID 05/24/17 07/28/20 History 20mg Tab] Atorvastatin Calcium [Lipitor 40mg 40 mg PO HS 07/26/18 07/28/20 History Tab] carvediloL [Carvedilol 25mg Tab] 25 mg PO BID 07/26/18 07/28/20 History rivaroxaban 20 mg tablet 15 mg PO DAILY tab 08/08/18 08/08/18 History Ondansetron [Zofran 4mg ODT] 4 mg PO TID PRN 4 Days #15 09/11/19 07/28/20 Rx tab.rapdis Furosemide [Furosemide 40MG tAB*] 40 mg PO DAILY 07/28/20 07/28/20 History Glimepiride 2 mg PO DAILY 07/28/20 History Allergies Allergy/AdvReac Type Severity Reaction Status Date / Time codeine [CODEINE] Allergy Unknown Verified 08/08/18 13:08 Exam Vital signs and Labs for Last 24 Hours: Temp Pulse Resp BP Pulse Ox 98.0 F 90 16 115/68 97 07/29/20 03:57 07/29/20 03:57 07/29/20 03:57 07/29/20 03:57 07/29/20 03:57 Laboratory Results - last 24 hr 07/28/20 19:25: Lactate 2.3 H 07/28/20 19:25: C-Reactive Protein 0.5, Procalcitonin 0.078, TSH 3.35 07/28/20 19:25: Thyroxine (T4) 7.4 07/28/20 19:26: Hemoglobin A1c 13.5 H 07/28/20 19:30: WBC 8.1 D, RBC 4.64, Hgb 12.1 L, Hct 38.4, MCV 82.9, MCH 26.0 L, MCHC 31.4 L, RDW 16.1, Plt Count 170, MPV 9.5, Neut % (Auto) 85.0 H, Lymph % (Auto) 9.6 L, [place] % (Auto) 5.0, Eos % (Auto) 0.3, Baso % (Auto) 0.1, Neut # (Auto) 6.8, Lymph # (Auto) 0.8, [place] # (Auto) 0.4, Eos # (Auto) 0.0, Baso # (Auto) 0.0, Total Counted 100, Neutrophils % (Manual) 91 H, Lymphocytes % (Manual) 7 L, Monocytes % (Manual) 1 L, Basophils % ([place]
--- NOTE | 2020-07-29 09:53 | HMH.OTEV ---
OT Inpatient Evaluation Rehab OT IP Evaluation Start: 07/29/20 08:15 Freq: ONCE Status: Complete Protocol: Document 07/29/20 09:36 [facility] (Rec: 07/29/20 09:53 [facility] [id number]) Rehab OT IP Assessment Subjective History Pt oriented x 3 on arrival. Pt agreeable to engage in therapy evaluation. Pt was admitted via ED on 07/28/20 due to redness and spot on right ankle that had become more painful; she was able to bear weight. Pt has a past medical history of DM type 2, CAD, Coronary stents, HTN, HLD , and A-fib. Pt reports prior to hospital she lived with her son and grandson. Pt claims she was independent with dressing and feeding. Pt was dependent upon family to complete IADLS. She did require assistance with transferring in and out of bathtub. Pt did not use any AE during ambulation. Subjective My ankle is hurting really bad. Pt completed bed mobility with mod assist and went from supine to sitting at eob. Pt attempted to complete 3 sit to stands. She was only able to complete partial sit to stands due to pain in the right foot. She required mod assit to complete partial sit to stands. Pt then requested to lay back down. Pt required mod/max assist to complete bed mobility and go from sitting to supine. Objective Patient Orientation Person,Place,Birthday Upper Extremity Gross ROM WFL Bed Mobility bed mobility-scooting,bed mobility - supine/sit,bed mobility - rolling Assist Level Moderate x 1 (50% assist) Rehab OT IP prob,goals,plan Problems Date of Evaluation: 07/29/20 OT IP Problems Bed Mobility,Transfers,Gait, Balance,Self care,Safety Rehab Potential Rehab Potent
--- NOTE | 2020-07-29 10:03 | HMH.PHAINT ---
MEDICATION RECONCILIATION COMPLETED USING EXTERNAL FILL HISTORY, HOME PHARMACY, AND PHYSICIAN OFFICE
--- NOTE | 2020-07-29 10:22 | SW/DCPLANNER ---
Addendum entered by Ashia Parikh 07/29/20 13:45: PATIENT HAS AGREED HOME HEALTH SERVICES AND CHOSE [facility], THIS WAS SET UP WITH ANTICIPATION FOR DISCHARGE EITHER THIS AFTERNOON OR IN THE MORNING... SHE WILL RECEIVE PT/OT AND FDC.. Original Note: HAD A CONVERSATION THIS MORNING WITH 2 OF THE DAUGHTERS OF THIS PATIENT: MS QUIÑONES PRESENTED INTO THE HOSPITAL WITH CELLULITIS ... SHE RESIDES AT HOME WITH A SON AND GRANDSON THAT ARE VERY ATTENTIVE PLUS 2 SISTERS THAT COME ALSO DAILY AND CARES FOR HER... THEY SAT IN THE PARKING LOT ALL NIGHT JUST TO BE SURE TO CATCH THE MD THIS MORNING AND WAS NOT ALLOWED TO GO BACK TO HER ROOM UNTIL 9 AM.... I ASKED ABOUT PLACEMENT AND THEY WERE VERY ADAMANT THAT DON'T WANT HER PLACED AND FEELS SHE IS CARED FOR AT HOME VERY WELL.. NOT INTERESTED IN HOME HEALTH EITHER, FEELS THEY CAN DO WHAT THE THERAPISTS CAN DO, SHE DOESN'T LIKE ANYONE IN HER HOME...PATIENT IS CLOSE TO BEING READY FOR DISCHARGE, IF SOMETHING CHANGES I WILL SET UP ANYTHING THAT IS ORDERED BY MD...
[2020-07-29 10:36] VITALS: BMI 31.6
[2020-07-29 10:44] LABS: POC Glucose,Bedside 205 (70-110)
--- NOTE | 2020-07-29 11:21 | HMH.PTEV ---
Physical Therapy Evaluation Rehab PT IP Evaluation Start: 07/29/20 08:15 Freq: ONCE Status: Active Protocol: Document 07/29/20 11:12 [facility] (Rec: 07/29/20 11:20 [facility] [id number]) Subjective/History History History THis is the initial IP PT evaluation for Herlinda Tenorio. Pt is an 80 y/o female admitted to [facility] for elevated blood sugars, and cellulitis. Pt lives at home w/ son and grandson, which per pt and daughter provide round the clock care and assistance. Pt uses support of help to ambulate short distances at home, bt does not cook, clean, bath, transfer, or ambulate independently. Pt requires moderate to maximal assistance w/ all ADL's. Subjective Subjective Pt c/o pain in BLE - TTP in BLE lower legs, TTP R foot and heel where pt has open wound OF note pt stated she felt nauseated and dizzy upon standing w/ sit st transfer - BP taken w/ sit/st transfer noted to be 94/52 - nsg noted BP as she was in room and took BP Rehab PT IP Eval Objective Appearance Patient Behavior Cooperative,Fatigued,Guarded Patient Orientation Person,Place,Time Difficulty following instructions none Speech Pattern Appropriate,Soft-Spoken Ambulation Patient Able to Ambulate No Ambulation Observation Ambulation Distance (feet) 0 Balance Ability to Arise Able, uses arms to help Sitting Balance Steady, safe Standing Balance Unsteady Dynamic Sitting Balance Ability Fair Dynamic Standing Balance Ability Poor Transfers Chair Transfer Ability Supervision/Stand by Sit to Stand Chair Transfer Ability Supervision/Stand by,Contact Guard/Hand Hold Rehab PT IP prob,goals,plan Problems Date of Evaluation: 07/29/20 PT IP Problems Bed Mobility,Transfers,Gait, Balance,Self care,Safety Rehab Potential Rehab Potential Poor Equipment Needs Assistive Devices Standard Walker,Rolling / Wheeled Walker Plan PT Intervention Plan
--- NOTE | 2020-07-29 14:17 | HMH.DCSUM ---
General - General Admission date:: 07/28/20 Discharge date: 07/29/20 HPI HPI: 80-year-old white female with multiple medical problems including chronic atrial fibrillation, on Xarelto. Type 2 diabetes, chronic gastroparesis and chronic pain disorder-who is intolerant to all pain medications at this point except Tylenol. She was brought to the emergency department last night by her daughters because of weakness and also the sudden appearance of a right medial heel ulcer that they were concerned was infected. She was found to have mild prerenal azotemia, weakness and was admitted to hospital for IV fluids, podiatry evaluation for the ulcer and further diagnostic testing. Of note patient has been treated in the infusion center over the past 10 days with IV fluids because of dehydration and elevated creatinine as well as a urinary tract infection that she is finishing up [facility] for. Hospital Course Hospital Course: Patient was admitted to hospital, given IV fluids overnight, SHALONDA improved with creatinine improving down to 1.4. She continued to feel weak, PT/OT evaluation recommended home health therapy, family was agreeable to this. Podiatry consult reviewed, ulcer was very superficial, no evidence of bone or deep tissue involvement, recommended daily dressing changes. Patient feels better, continues to have a lot of pain, I reviewed her pain issues with her, she is willing to try tramadol again as other opiates cause lots of nausea and she has contraindications to NSAIDs. We will also look at her medication list to eliminate blood pressure medications given her dizziness and evidence of orthostatic hypotension. Objective Vital signs: Temp Pulse Resp BP Pulse Ox 97.7 F 83 20 134/67 97 07/29/20 08:00 07/29/20 08:00 07/29/20 08:00 07/29/20 08:00 07/29/20 08:00 no acute distress - *Routine HEENT Exam Head: Present: normocephalic Eye: Present: EOMI, PERRL ENT: Present: mucous membranes moist - *Routine Neck Exam Present: supple - *Routine Respiratory Exam Present: CTA bilaterally - *Routine Cardiovascular Exam Present: murmur, irregular rhythm - *Routine Abdominal Exam Present: soft, normoactive bowel sounds. Absent: tenderness - *Routine Extremities Exam Absent: cyanosis, clubbing, edema Comments: Medial right heel ulcer as previously noted on podiatry notes - *Routine Skin Exam Present: warm. Absent: rash - Detailed Eye Exam Eyelids: Bilateral normal inspection Results Labs on day of discharge: Labs from last 24 hours 07/29/20 07/29/20 07/29/20 10:23 06:41 06:41 WBC 6.7 RBC 3.92 L Hgb 10.2 L D Hct 32.0 L MCV 81.7 MCH 26.1 L MCHC 31.9 RDW 16.3 Plt Count 139 L MPV 9.4 Neut % (Auto) 78.1 Lymph % (Auto) 14.6 [place] % (Auto) 6.5 Eos % (Auto) 0.7 Baso % (Auto) 0.1 Neut # (Auto) 5.2 Lymph # (Auto) 1.0 [place] # (Auto) 0.4 Eos # (Auto) 0.1 Baso # (Auto) 0.0 Total Counted Neutrophils % (Manual) Lymphocytes % (Manual) Monocytes % (Manual) Basophils % (Manual) Platelet Estimate Hypochromasia Poikilocytosis Anisocytosis ESR Sodium 135 L Potassium 4.2 Chloride 106 Carbon Dioxide 26 Anion Gap 7.2 BUN 43 H Creatinine 1.40 H D Estimated Creat Clear 41 Estimated GFR 36 L Est GFR ( Amer) 44 L D Glucose 154 H D POC Glucose 205 H Hemoglobin A1c Lactate Calcium 7.9 L Magnesium 1.7 Total Bilirubin AST ALT Alkaline Phosphatase Total Creatine Kinase CK-MB (CK-2) CK-MB (CK-2) Rel Index Troponin I C-Reactive Protein NT-Pro-B Natriuret Pep Total Protein Albumin Globulin Albumin/Globulin Ratio Procalcitonin TSH Thyroxine (T4) Urine Color Urine Appearance Urine pH Ur Specific [place] Urine Protein Urine Glucose (UA) Urine Ketones Urine Blood U
== END 2020-07-29 14:50 | disposition home health service (06) ==
LOC: ER 20:58 → 2ND 21:12
PROVIDERS: Admitting Provider Emergency Medicine; Emergency Provider Emergency Medicine; PCP Internal Medicine Adolescent Medicine; Visit Provider Internal Medicine Adolescent Medicine
DX: E11.621 Type 2 diabetes mellitus with foot ulcer (principal); L97.411 Non-pressure chronic ulcer of right heel and midfoot limited to breakdown of skin; Z79.84 Long term (current) use of oral hypoglycemic drugs; Z79.01 Long term (current) use of anticoagulants; I48.91 Unspecified atrial fibrillation; I11.0 Hypertensive heart disease with heart failure; I50.9 Heart failure, unspecified; E03.9 Hypothyroidism, unspecified; Z79.899 Other long term (current) drug therapy; Z79.82 Long term (current) use of aspirin
CPT/HCPCS: 36415; 71045; 73630; 80048; 80053; 81001; 82550; 82553; 82962; 83036; 83605; 83735; 83880; 84145; 84436; 84443; 84484; 85007; 85025; 85651; 86140; 87040; 87070; 87077; 87186; 87205; 93005; 93306; 96365; 97162; 97166; 97530; 99284; G0378; J3370; U0003

== ENCOUNTER → 2020-08-01 11:38 | Outpatient (CLI) | payer MEDICARE, MEDICAID, SELFPAY ==
[2020-08-01 15:19] LABS: Basophils % 0.2 % (0.1-2.0); Eosinophils % 0.5 % (0.1-12.0); Hematocrit 32.8 % (37.0-47.0); Hemoglobin 10.2 g/dL (12.2-16.2); Lymphocytes # 1.2 K/mm3 (0.7-4.5); Lymphocytes % 14.8 % (10-50); Mean Corpuscular HGB Conc 31.1 g/dL (31.8-35.4); Mean Corpuscular Hemoglobin 26.2 pg (27.0-31.2); Mean Corpuscular Volume 84.1 fl (81-99); Mean Platelet Volume 10.4 fl (7.4-10.4); Monocytes # 0.5 K/mm3 (0.1-1.0); Monocytes % 6.2 % (1.7-9.3); Neutrophils # 6.1 K/mm3 (1.8-7.8); Neutrophils % 78.3 % (37.0-80.0); Platelet Count 150 K/mm3 (142-424); Red Blood Count 3.89 M/mm3 (4.20-5.40); Red Cell Distribution Width 16.5 % (11.5-17.5); White Blood Count 7.8 K/mm3 (4.8-10.8)
[2020-08-01 15:26] LABS: Anion Gap 13.9 mEq/L (5-15); Blood Urea Nitrogen 35 mg/dl (7-17); Calcium 8.3 mg/dl (8.4-10.2); Carbon Dioxide 24 mmol/L (22.0-30.0); Chloride 103 mmol/L (98-107); Estimated Glomerular Filt Rate 29 ml/min (>60); GFR (African American) 35 ML/MIN (>60); Glucose 200 mg/dl (74-100); Potassium 4.9 mmoL/L (3.5-5.1); Sodium 136 mmol/L (136-145)
== END ==
PROVIDERS: Visit Provider Nurse Practitioner Family
DX: R73.9 Hyperglycemia, unspecified (principal)
CPT/HCPCS: 80048; 85025

== ENCOUNTER 2020-08-03 14:22 | Emergency (ER) | payer MEDICARE, MEDICAID, SELFPAY ==
[2020-08-03 14:52] VITALS: BP 114/71; PULSE 91; RESP 18; TEMP 36.8; O2SAT 98; BMI 34.3
[2020-08-03 15:40] LABS: Basophils % 0.1 % (0.1-2.0); Eosinophils % 0.4 % (0.1-12.0); Hematocrit 36.8 % (37.0-47.0); Hemoglobin 11.3 g/dL (12.2-16.2); Lymphocytes # 0.7 K/mm3 (0.7-4.5); Lymphocytes % 7.8 % (10-50); Mean Corpuscular HGB Conc 30.6 g/dL (31.8-35.4); Mean Corpuscular Hemoglobin 25.9 pg (27.0-31.2); Mean Corpuscular Volume 84.4 fl (81-99); Mean Platelet Volume 9.6 fl (7.4-10.4); Monocytes # 0.5 K/mm3 (0.1-1.0); Monocytes % 5.6 % (1.7-9.3); Neutrophils # 7.7 K/mm3 (1.8-7.8); Neutrophils % 86.1 % (37.0-80.0); Platelet Count 172 K/mm3 (142-424); Red Blood Count 4.36 M/mm3 (4.20-5.40); Red Cell Distribution Width 16.2 % (11.5-17.5); White Blood Count 8.9 K/mm3 (4.8-10.8)
[2020-08-03 15:44] LABS: MANUAL DIFFERENTIAL MANUAL DIFFERENTIAL (MANUAL DIFF)
--- NOTE | 2020-08-03 15:46 | CT_ITS ---
PROCEDURE: CT ABDOMEN PELVIS WO CON CLINICAL INDICATION: STATED CONSTIPATION COMPARISON: CT ABDPELWW CT abdomen pelvis wo/w con from 07/26/2018 TECHNIQUE: Axial images obtained with sagittal and coronal reformats. All CT scans at the facility use one or more dose reduction, viz: automated exposure control, ma/kV adjustment per patient size (including targeted exams where dose is matched to indication, i.e. head), or iterative reconstruction technique. FINDINGS: Lower thorax: No acute finding ABDOMEN: Liver: No masses or biliary dilatation. Gallbladder: With multiple calcified gallstones layering along the dependent wall Pancreas: No masses or peripancreatic fluid collections. Spleen: unremarkable Adrenals: unremarkable Kidneys/ureters: The kidneys are lower limits of normal in size, there are no calculi and there is no obstructive uropathy of either kidney. There is stranding of drug thus fascia around both kidneys with this is nonspecific and was seen on the previous CT scan 07/26/2018 ABDOMEN & PELVIS: Stomach bowel: The stomach is grossly normal. The small bowel is unremarkable. There is abundant fat in the mesentery. The appendix is not definitely visualized but there are no pericecal inflammatory changes. There is a large amount of formed stool seen throughout the entire colon. There is mild diffuse diverticulosis of the sigmoid colon but there is no diverticulitis. There is large amount stool in the rectum. Peritoneum: No abnormal fluid collections. No obvious inflammatory changes. No free air. Lymph nodes: No enlarged lymph nodes apparent. Vasculature: There is moderate diffuse arthrosclerotic calcifications in the abdominal aorta and proximal common iliac arteries but there is no aneurysm. Bones: No acute fracture PELVIS: Reproductive: The uterus is somewhat small but in the midline. The urinary bladder moderately distended with urine appears normal. There is no free fluid in the pelvis. Bladder: Not definitely identified Appendix: Unremarkable. No distention or periappendiceal phlegmonous change. IMPRESSION: Findings of prominent constipation with formed stool seen throughout the entire colon including the rectum with mild diverticulosis of the sigmoid colon Dictated by: Dr. Niko Avelar MD 08/03/2020 16:36 Dr. Niko Avelar MD in [place] 08/03/2020 16:36
[2020-08-03 15:49] LABS: Chloride 102 mmol/L (98-107); Potassium 5.3 mmoL/L (3.5-5.1); Sodium 134 mmol/L (136-145)
[2020-08-03 15:51] LABS: Blood Urea Nitrogen 48 mg/dl (7-17); Creatinine Clearance Estimated 33 mL/min (50-200); Estimated Glomerular Filt Rate 25 ml/min (>60); GFR (African American) 31 ML/MIN (>60)
[2020-08-03 15:52] LABS: Alanine Aminotransferase 32 U/L (12-78); Albumin Level 3.6 g/dl (3.5-5.0); Albumin/Globulin Ratio 1.4 (1.1-1.8); Alkaline Phosphatase 63 U/L (38-126); Anion Gap 13.3 mEq/L (5-15); Aspartate Amino Transferase 35 U/L (14-36); Bilirubin,Total 0.9 mg/dl (0.2-1.3); Calcium 8.7 mg/dl (8.4-10.2); Carbon Dioxide 24 mmol/L (22.0-30.0); Globulin 2.5 g/dL (1.3-3.2); Glucose 200 mg/dl (74-100); Total Protein,Serum 6.1 g/dl (6.3-8.2)
[2020-08-03 15:54] LABS: Lymphocytes % 10 % (10-50); Monocytes % 5 % (2-9); Neutrophils % 83 % (42-76); Platelet Estimate Normal; RBC Morphology Normal; Total Cells Counted 100
[2020-08-03 17:00] VITALS: BP 115/65
[2020-08-03 17:30] VITALS: BP 110/63; PULSE 100; O2SAT 98
--- NOTE | 2020-08-03 17:53 | ECG_ITS ---
APPROVED REPORT Exam: Resting ECG HR:94 bpm ECG Measurements Heart Rate 94 AXES QRSd 78 QRS 82 QT 414 T -18 QTc 517 Conclusion Atrial flutter with variable AV block Nonspecific ST and T wave abnormality Prolonged QT Abnormal ECG Electronically signed by : Adriano Aguilar, 08/04/2020 07:26:04
[2020-08-03 18:01] VITALS: BP 135/87; PULSE 91; RESP 18; TEMP 36.8; O2SAT 98
--- NOTE | 2020-08-03 18:37 | PC.NURSE ---
PATIENT STILL ON BEDSIDE COMMODE. SHE STATES SHE STILL WANTS TO TRY TO HAVE A BOWEL MOVEMENT
[2020-08-03 18:56] VITALS: BP 135/87; PULSE 98; RESP 18; O2SAT 99
[2020-08-03 19:38] LABS: Reflex Lactic Add Lactic Reflex
--- NOTE | 2020-08-03 19:44 | HMH.EDABDPAI ---
ED Disposition Clinical Impression: Fecal impaction in rectum Disposition: Home, Self-Care Condition on Discharge: Fair Instructions: DI for Acute Abdominal Pain Additional Instructions: Please continue to take MiraLAX daily until stools the consistency of peanut butter. Please add milk of magnesia or suppositories for improved symptoms. Perform MiraLAX washout which involves drinking an entire container of MiraLAX in blue Powerade within an hour and a half to completely clean out the bowels Follow-up with your PCP for further management Please avoid opioid pain medication Prescriptions: Magnesium Hydroxide [Milk of Magnesia] 10 ml PO NEEDED PRN #[id number] oral.susp PRN Reason: Constipation Prescription Printed Referrals: Adriano Aguilar MD [Primary Care Provider] - - Critical Care Critical Care Time: No Attestation: On 08/03/20, the high probability of a clinically significant, sudden or life threatening deterioration of the following system(s) required my full and direct attention, intervention and personal management. The time I documented below is in addition to time spent performing reported procedures but includes the following listed in this critical care notation. Medical Decision Making - Medical Records Medical records reviewed: Yes: I reviewed the patient's medical records. - Haseeb Inquiry Pt receiving controlled substance: No Haseeb was queried for this patient: No Vital Signs: 08/03/20 14:52 08/03/20 17:00 08/03/20 17:30 Temperature 98.3 F Temperature Source Oral Pulse Rate 100 H Pulse Rate [Right] 91 H Respiratory Rate 18 Blood Pressure 115/65 110/63 Blood Pressure [Right Arm] 114/71 Blood Pressure Mean 91 78 Blood Pressure Mean [Right Arm] 85 Blood Pressure Source Blood Pressure Position 02 Sat by Pulse Oximetry 98 98 08/03/20 18:01 08/03/20 18:56 Temperature 98.3 F Temperature Source Pulse Rate 91 H 98 H Pulse Rate [Right] Respiratory Rate 18 18 Blood Pressure 135/87 135/87 Blood Pressure [Right Arm] Blood Pressure Mean 95 Blood Pressure Mean [Right Arm] Blood Pressure Source Automatic Cuff Blood Pressure Position Supine 02 Sat by Pulse Oximetry 98 99 - Lab Data Lab results reviewed: Yes: I reviewed the patient's lab results. Lab Results 08/03/20 15:30: WBC 8.9, RBC 4.36, Hgb 11.3 L, Hct 36.8 L, MCV 84.4, MCH 25.9 L, MCHC 30.6 L, RDW 16.2, Plt Count 172, MPV 9.6, Neut % (Auto) 86.1 H, Lymph % (Auto) 7.8 L, [place] % (Auto) 5.6, Eos % (Auto) 0.4, Baso % (Auto) 0.1, Neut # (Auto) 7.7, Lymph # (Auto) 0.7, [place] # (Auto) 0.5, Eos # (Auto) 0.0, Baso # (Auto) 0.0, Total Counted 100, Neutrophils % (Manual) 83 H, Band Neutrophils % 2.0, Lymphocytes % (Manual) 10, Monocytes % (Manual) 5, Platelet Estimate Normal, RBC Morphology Normal 08/03/20 15:30: Sodium 134 L, Potassium 5.3 H, Chloride 102, Carbon Dioxide 24, Anion Gap 13.3, BUN 48 H D, Creatinine 1.90 H, Estimated Creat Clear 33, Estimated GFR 25 L, Est GFR ( Amer) 31 L, Glucose 200 H, Calcium 8.7, Total Bilirubin 0.9, AST 35, ALT 32, Alkaline Phosphatase 63, Total Protein 6.1 L, Albumin 3.6, Globulin 2.5, Albumin/Globulin Ratio 1.4 08/03/20 15:30: Lactate 3.0 H Result diagrams: 08/03/20 15:30 08/03/20 15:30 Orders (Tests/Meds): ED MEDICATIONS Discontinued Medications Generic Name Dose Route Start Last Admin Trade Name Freq PRN Reason Stop Dose Admin Ketorolac Tromethamine 30 mg 08/03/20 19:57 08/03/20 20:05 Ketorolac 30mg/Ml Vial IV 08/03/20 19:58 30 mg ONCE ONE Administration Sodium Phosphate 133 ml 08/03/20 17:25 08/03/20 17:59 Fleet 133ml Enema RC 08/03/20 17:26 133 ml ONCE ONE Administration Sodium Phosphate 133 ml 08/03/20 19:57 08/03/20 20:05 Fleet 133ml Enema RC 08/03/20 19:58 133 ml ONCE ONE Administration ORDERS Category Date Time Status EKG Request [ECG Request by /Nse] Stat Y 08/03/20 17:25 Ordered Medical Decisi
[2020-08-03 20:59] VITALS: BP 129/83; PULSE 92; RESP 18; TEMP 36.7; O2SAT 96
--- NOTE | 2020-08-05 20:41 | PC.NURSE ---
Medical records sent to [facility]
== END 2020-08-03 21:14 | disposition home or self-care (01) ==
PROVIDERS: Emergency Provider Emergency Medicine; PCP Internal Medicine Adolescent Medicine
DX: K56.41 Fecal impaction (principal); K59.00 Constipation, unspecified; E11.9 Type 2 diabetes mellitus without complications; I10 Essential (primary) hypertension; I48.91 Unspecified atrial fibrillation; I25.10 Atherosclerotic heart disease of native coronary artery without angina pectoris; E03.9 Hypothyroidism, unspecified; E78.5 Hyperlipidemia, unspecified; I50.9 Heart failure, unspecified; Z87.891 Personal history of nicotine dependence; Z88.5 Allergy status to narcotic agent; Z79.899 Other long term (current) drug therapy
CPT/HCPCS: 74176; 80053; 83605; 85007; 85025; 93005; 99282